=== PATIENT | female | born 1990 | race African-American/Black ===

== ENCOUNTER 2022-01-15 08:24 | Outpatient (CLI) | payer OTHER, SELFPAY ==
--- NOTE | ~2022-01-15 | XR_ITS ---
EXAMINATION: XR shoulder RT min 2V DATE: 01/15/2022 08:47 INDICATION: Right shoulder pain TECHNIQUE: AP internally and externally rotated, AP oblique externally rotated and transscapular Y vi ews of the right shoulder were obtained. COMPARISON: None FINDINGS: Normal alignment at the right shoulder. No fracture. Glenohumeral joint is normal. Acromioclavicular joint is normal. Soft tissues are unremarkable. Visualized portions of the lungs are clear. Normal d egree and azygos lobe and fissure at the medial right upper lung zone. IMPRESSION: Negative right shoulder radiographs. Reviewed, dictated and finalized at location A. LE VALVE TESTER
--- NOTE | ~2022-01-15 | XR_ITS ---
EXAMINATION:XR_CERV2-3V_CR DATE: 01/15/2022 08:47 INDICATION: Cervicalgia radiating to the right shoulder TECHNIQUE: AP, lateral, lateral swimmers and odontoid views of the cervical spine are provided. COMPARISON: None FINDINGS: Straightening of the normal cervical lordosis which could be positional or due to muscle spasm. No sp ondylolisthesis or facet subluxation. Odontoid is intact. Normal atlantoaxial interval. Vertebral ilir dy heights are normal. Disc spaces are normal. The facet and uncovertebral joints are unremarkable. P revertebral soft tissues are normal. IMPRESSION: 1. Straightening of the normal cervical lordosis which could be positional or due to muscle spasm. Ot herwise unremarkable cervical spine radiographs. Reviewed, dictated and finalized at location A. IT UNION EXAMINER IMPRESSION: 1. Straightening of the normal cervical lordosis which could be positional or d ue to muscle spasm. Otherwise unremarkable cervical spine radiographs.
== END 2022-01-15 08:25 | disposition home or self-care (01) ==
LOC: ANHIMG 08:30
PROVIDERS: PCP Internal Medicine; Visit Provider Internal Medicine
DX: M54.2 Cervicalgia (principal); M25.511 Pain in right shoulder
CPT/HCPCS: 72040; 73030

== ENCOUNTER 2022-01-18 18:28 | Emergency (ER) | payer OTHER, SELFPAY ==
--- NOTE | ~2022-01-18 | CT_ITS ---
EXAMINATION: CT abdomen pelvis w con DATE: 01/18/2022 21:15 INDICATION: Lower abdominal pain for 2 days TECHNIQUE: Computed tomography (CT) of the abdomen and pelvis was performed with 100 CC Omnipaque 350 intravenous contrast. Automated exposure control and iterative reconstruction technique were employe d. Exam dose: 348.62 mGy-cm total exam DLP. COMPARISON: 12/14/2019 CT abdomen pelvis FINDINGS: The lung bases are clear. Normal heart size. No pericardial or pleural effusion. The liver, spleen, pancreas, and adrenal glands and kidneys are unremarkable. The gallbladder is pres ent. No bile duct or pancreatic duct dilatation. No urinary tract calculus or hydroureteronephrosis. Normal caliber of the abdominal aorta. No intraperitoneal or retroperitoneal or pelvic mass lesion or adenopathy is noted. Status post gastric bypass surgery. Diverticulosis of the left colon; no CT evidence of diverticulitis. No bowel obstruction is evident. There is free fluid in Morison's pouch, the right and left paracolic gutters and pelvis. There is enh ancement in the uterine serosal area and adnexa. Differential diagnosis includes ruptured cyst, ruptu red ectopic , pelvic inflammatory disease. Pessary device is noted. Included skeletal structures are unremarkable. IMPRESSION: Moderate free fluid in Morison's pouch, paracolic gutters and pelvis. There is a serosal enhancement of the uterus. Consider ruptured ovarian cyst, ruptured ectopic gestation, pelvic inflam matory disease Status post gastric bypass surgery Diverticulosis of left colon; no evidence of diverticulitis Reviewed, dictated and finalized at Location A. Reviewed, dictated and finalized at location A. ANALYST IMPRESSION: Moderate free fluid in Morison's pouch, paracolic gutters and pelv is. There is a serosal enhancement of the uterus. Consider ruptured ovarian cys t, ruptured ectopic gestation, pelvic inflammatory disease Status post gastric bypass surgery Diverticulosis of left colon; no evidence of diverticulitis
[2022-01-18 18:31] VITALS: BP 136/95; PULSE 152; RESP 20; TEMP 36.8; O2SAT 100
[2022-01-18 18:51] LABS: Basophils Percent Auto 0.3 % (0.2-1.2); Eosinophils Absolute Auto 0.3 K/mm3 (0-0.3); Eosinophils Percent Auto 2.7 % (0-4.4); Hematocrit 41.1 % (37.0-47.0); Hemoglobin 13.5 g/dL (12.0-15.0); Immature Granulocyte Absolute 0.03 K/mm3 (0.00-0.031); Immature Granulocyte Percent A 0.3 % (0-0.5); Lymphocytes Absolute Auto 2.15 K/mm3 (0.9-3.2); Lymphocytes Percent Auto 18.5 % (18.3-44.2); Mean Corpuscular HGB Conc 32.8 g/dl (32-36); Mean Corpuscular Hemoglobin 33.3 pg (26-34); Mean Corpuscular Volume 101.5 fl (80-100); Mean Platelet Volume 9.9 fl (7.4-10.4); Monocytes Absolute Auto 0.7 K/mm3 (0.1-0.6); Monocytes Percent Auto 6.1 % (2.6-8.5); Neutrophils Absolute Auto 8.4 K/mm3 (1.3-6.7); Neutrophils Percent Auto 72.1 % (45.5-73.1); Platelet Count Result 427 k/mm3 (150-375); Red Blood Count 4.05 M/mm3 (4.2-5.4); Red Cell Distribution Width 13.3 % (11.5-14.5); White Blood Count 11.6 K/mm3 (4.5-10.0)
[2022-01-18 19:05] LABS: Alanine Aminotransferase 14 U/L (4-35); Albumin Level 4.3 g/dL (3.5-5.1); Alkaline Phosphatase 90 U/L (38-126); Anion Gap 10 mmol/L (8-16); Aspartate Amino Transferase 32 U/L (14-36); Bilirubin,Total 0.6 mg/dL (0.2-1.3); Blood Urea Nitrogen 16 mg/dL (7-17); Calcium 8.8 mg/dL (8.4-10.2); Carbon Dioxide 23 mmol/L (22-30); Chloride 105 mmol/L (98-107); Estimated CRCL calculation 93 ml/min; Estimated Glomerular Filt Rate > 60; Glucose 93 mg/dL (65-110); Lipase 19 U/L (23-300); Potassium 3.4 mmol/L (3.4-5.0); Sodium 138 mmol/L (137-145)
[2022-01-18 20:20] LABS: Add Urine Microscopic? YES; Appearance Urine Cloudy (Clear); Bacteria Urine 2+ /hpf; Bilirubin Urine Negative (Negative); Blood Urine Negative (Negative); Color Urine Amber (Yellow); Glucose Urine UA Negative (Negative); Ketones Urine Trace mg/dL (Negative); Leukocyte Esterase Ur Trace LEU/UL (Negative); Mucus Urine Heavy /lpf; Nitrate Urine Negative (Negative); Protein Urine 1+ mg/dL (Negative); Squamous Epithelial Cell Urine Many /hpf (Few); Transitional Epi Cells Urine Rare /hpf (None Seen); Urobilinogen Urine Negative mg/dL (<2.0); WBC Urine 16-20 /hpf
--- NOTE | 2022-01-18 21:00 | ECG_ITS ---
Measurements Intervals [place] Rate: 108 P: 44 ME: 153 QRS: 59 QRSD: 81 T: -26 QT: 319 QTc: 429 Interpretive Statements SINUS TACHYCARDIA BORDERLINE ST-T WAVE ABNORMALITY- INFERIOR LEADS BASELINE ARTIFACT- I, III ABNORMAL ECG Electronically Signed On 01-18-2022 22:39:53 CONCRETE PUMP OPERATOR HELPER by Donato Winters D.O.
[2022-01-18] MEDS: ONDANSETRON INJ 4 MG/2 ML VIAL IV PUSH (21:18)
[2022-01-18] MEDS: LACTATED RINGERS 1,000 ML 999 ML IV CONT (21:18)
[2022-01-18] MEDS: MORPHINE SULFATE (*CRX) 4 MG/ML INJ IV PUSH (21:18)
--- NOTE | 2022-01-18 22:36 | ED.ABDPAIN ---
HPI - Abdominal Pain General Chief Complaint: Abdominal Pain Stated Complaint: abd pain Time Seen by Provider: 01/18/22 20:23 Source: patient and RN notes reviewed Mode of arrival: ambulatory Limitations: no limitations History of Present Illness HPI narrative: This is a 31 year old female who presents for evaluation of lower abdominal pain. She developed lower abdominal pain 2 days ago. Her pain has been constant but gradually worsening. She also reports her pain is worse on left lower abdomen. She has associated bloating but denies nausea, vomiting, diarrhea, fever or chills. She denies abnormal vaginal discharge or urinary complaints. She also denies having similar pain in the past. She has not taken anything for pain. Pain is rated 10/10. 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 Related Data Allergies Allergy/AdvReac Type Severity Reaction Status Date / Time No Known Allergies Allergy Verified 12/14/19 01:50 Review of Systems Review of Systems: All systems reviewed & are unremarkable except as noted in HPI and below Constitutional: Constitutional: Denies chills and Denies fever(s) Cardiovascular: Cardiovascular: Denies chest pain Respiratory: Respiratory: Denies cough and Denies dyspnea Gastrointestinal: Gastrointestinal: Reports abdominal pain, Reports bloating, Denies constipation, Denies diarrhea, Denies nausea and Denies vomiting Genitourinary: Genitourinary: Denies abnormal vaginal bleeding, Denies hematuria and Denies vaginal discharge [facility] Past Medical History Medical History (Updated 01/18/22 @ 23:53 by Barb Hernandez MD) CPAP (continuous positive airway pressure) dependence Sleep apnea Surgical History Surgical History (Updated 01/18/22 @ 22:41 by Barb Hernandez MD) H/O gastric bypass History of hand surgery left Social History Social History (Updated 12/14/19 @ 02:13 by Loraine Luque) Smoking status: Never smoker Gender identity (if verbalized by the patient): Female Exam Const: General: no acute distress and alert Orientation/consciousness: patient oriented x3 Eyes: EOM: EOMs intact bilaterally Resp: Effort & Inspection: normal respiratory effort Auscultation: clear to auscultation bilaterally Cardio: Rate: tachycardic Rhythm: regular rhythm Heart sounds: no murmurs GI: GI Palp: Yes Soft to palpation, Yes Tenderness to palpation present (GI) (LLQ, RLQ, suprapubic), No Guarding due to palpation present (GI) and No Rigid due to palpation Auscultation: normal bowel sounds : General: Yes no CVA tenderness Speculum Exam - Cervix: normal appearance of the cervix and Cervical os closed Bimanual exam- vagina & uterus: cervical motion tenderness Other: white discharge Skin: General skin exam: normal color Neuro: General: patient oriented x3, moves all extremities and CN's II-XI intact bilaterally Psych: Mental Status: mental status grossly normal Affect: normal affect Course Reevaluation(s) Reevaluation #1: PAtient does not appear to be in any distress. Ambulate with steady gait. she will be treated for PID vs ruptured cyst. She has gynecology follow in less than 3 days. She has been started in antibiotics in ER. Date: 01/18/22 Time: 23:51 Vital Signs Vital signs: Vital Signs Temperature 98.3 F 01/18/22 18:31 Pulse Rate 152 H 01/18/22 18:31 Respiratory Rate 20 01/18/22 18:31 Blood Pressure 136/95 H 01/18/22 18:31 Pulse Oximetry 100 01/18/22 18:31 Temperature 98.4 F 01/18/22 23:38 Pulse Rate 108 H 01/18/22 23:38 Respiratory Rate 16 01/18/22 23:38 Blood Pressure 132/85 01/18/22 23:38 Pulse Oximetry 99 01/18/22 23:38 MDM - Abdominal Pain Lab Data Attestation: I reviewed the patient's lab results. Result diagrams: 01/18/22 18:42 01/18/22 18:42 Labs: Lab Results 01/18/22 01/18/22 01/18/22 Range/Units 18:42 18:42 20:09 WBC 11.6 H (4.5-10.0) K/m
[2022-01-18 22:58] LABS: Lactic Acid Reflex 1.4 mmol/L (0.7-2.1)
[2022-01-18] MEDS: DOXYCYCLINE HYCLATE 100 MG TABLET PO (23:24)
[2022-01-18] MEDS: cefTRIAXone 1 GM VIAL 0.5 GM IM (23:24)
[2022-01-18] MEDS: KETOROLAC 30 MG/ML VIAL (*BKC) IV PUSH (23:35)
[2022-01-18] MEDS: HYDROcodone/acetaminophen (*CRX) 5-325 MG TABLET 1 TAB PO (23:35)
[2022-01-18 23:38] VITALS: BP 132/85; PULSE 108; RESP 16; TEMP 36.9; O2SAT 99
== END 2022-01-19 00:10 | disposition home or self-care (01) ==
PROVIDERS: Emergency Medicine; Emergency Provider General Practice; PCP Internal Medicine
DX: N73.0 Acute parametritis and pelvic cellulitis (principal); G47.30 Sleep apnea, unspecified; Z98.84 Bariatric surgery status; K57.90 Diverticulosis of intestine, part unspecified, without perforation or abscess without bleeding; R00.0 Tachycardia, unspecified; R94.31 Abnormal electrocardiogram [ECG] [EKG]; Z11.3 Encounter for screening for infections with a predominantly sexual mode of transmission; N89.8 Other specified noninflammatory disorders of vagina
CPT/HCPCS: 36415; 74177; 80053; 81001; 81025; 83605; 83690; 85025; 87070; 87086; 87491; 87591; 87808; 93005; 96361; 96372; 96374; 96375; 99284; A9270; J0696; J1885; J2270; J2405; J7120; Q9967

== ENCOUNTER 2024-04-21 18:15 | Emergency (ER) | payer OTHER, SELFPAY ==
[2024-04-21 18:18] VITALS: BP 150/99; PULSE 83; RESP 16; TEMP 36.2; O2SAT 100
[2024-04-21 18:41] LABS: Basophils Percent Auto 0.4 % (0.2-1.2); Eosinophils Absolute Auto 0.1 K/mm3 (0-0.3); Eosinophils Percent Auto 1.2 % (0-4.4); Hematocrit 41.3 % (37.0-47.0); Hemoglobin 13.3 g/dL (12.0-15.0); Immature Granulocyte Absolute 0.01 K/mm3 (0.00-0.031); Immature Granulocyte Percent A 0.1 % (0-0.5); Lymphocytes Absolute Auto 2.26 K/mm3 (0.9-3.2); Lymphocytes Percent Auto 33.4 % (18.3-44.2); Mean Corpuscular HGB Conc 32.2 g/dl (32-36); Mean Corpuscular Hemoglobin 31.7 pg (26-34); Mean Corpuscular Volume 98.6 fl (80-100); Mean Platelet Volume 10.6 fl (7.4-10.4); Monocytes Absolute Auto 0.3 K/mm3 (0.1-0.6); Monocytes Percent Auto 4.7 % (2.6-8.5); Neutrophils Absolute Auto 4.1 K/mm3 (1.3-6.7); Neutrophils Percent Auto 60.2 % (45.5-73.1); Platelet Count Result 366 k/mm3 (150-375); Red Blood Count 4.19 M/mm3 (4.2-5.4); Red Cell Distribution Width 12.8 % (11.5-14.5); White Blood Count 6.8 K/mm3 (4.5-10.0)
--- NOTE | 2024-04-21 18:46 | ED.ABDPAIN ---
HPI - Abdominal Pain General Chief Complaint: Abdominal Pain Stated Complaint: abd pain Time Seen by Provider: 04/21/24 18:24 Source: patient Mode of arrival: ambulatory Limitations: no limitations History of Present Illness HPI narrative: Masha is a 33-year-old female patient presenting to the clinic today with complaints of lower abdominal pain, left lower back pain, and urinary frequency with urgency. She reports she has been on Macrobid for UTI. States she does not feel as though it is working. Denies any fever, chills, body aches. Related Data Allergies Allergy/AdvReac Type Severity Reaction Status Date / Time No Known Allergies Allergy Verified 04/21/24 19:32 Review of Systems Review of Systems: Pertinent positives per HPI. Patient denies any fever, chills, rash, headache, visual changes, dizziness, cough, runny nose, sore throat, shortness of breath, chest pain, palpitations, nausea, vomiting, diarrhea, constipation PMFSH Past Medical History Medical History CPAP (continuous positive airway pressure) dependence Sleep apnea Surgical History Surgical History H/O gastric bypass History of hand surgery left Social History Social History Smoking status: Never smoker Gender identity (if verbalized by the patient): Female Comments At the time of my signature, I reviewed and agree with the nursing past medical, surgical, social, and family history. There is no relevant family history pertinent to the patient complaint. Exam Narrative: General: Well-developed, well nourished, in no apparent distress. Head: Normocephalic, atraumatic. Cardio: Regular rate and rhythm, s1 and s2 normal, no murmur appreciated. Resp: Clear to auscultation bilaterally, no rhonchi, rales, wheezing or rubs. Abdomen: Soft, pliable, bowel sounds present in all quadrants, non-tender to palpation, no organomegly, no CVAT tenderness. Course Course Emergency Course: Portions of this record may have been created with voice recognition software. Vital Signs Vital signs: Vital Signs Temperature 36.2 C L 04/21/24 18:18 Pulse Rate 83 06/01/24 18:18 Respiratory Rate 16 04/21/24 18:18 Blood Pressure 150/99 H 04/21/24 18:18 Pulse Oximetry 100 04/21/24 18:18 Temperature 36.2 C L 04/21/24 18:18 Pulse Rate 83 04/21/24 18:18 Respiratory Rate 16 04/21/24 18:18 Blood Pressure 150/99 H 04/21/24 18:18 Pulse Oximetry 100 04/21/24 18:18 Vital signs reviewed MDM - Abdominal Pain MDM Narrative Medical decision making narrative: At the time of visit patient is resting comfortably on the exam table. Patient appears to be nontoxic. Labs: CBC shows white blood cell count of 6.8, H&H of 13.3 and 41.3, platelet count 366, chemistry shows sodium 141, potassium of 3.5, chloride 110, BUN 18, creatinine 0.6, GFR is greater than 60, liver function test within normal limits, lipase is normal. Urinalysis shows 2+ blood trace leukocytes and 3-5 red blood cells 0-5 white blood cells with rare bacteria. Plan: I suspect patient still has a urinary tract infection. Prescription for Bactrim. Supportive measures were discussed with the patient and they voiced understanding discharge instructions and agrees to treatment plan. Return precautions reviewed Differential Diagnosis Differential diagnosis: Likely abdominal pain, calculus of kidney, gastroenteritis and other (UTI) Lab Data 04/21/24 18:35 04/21/24 18:35 Labs: Lab Results 04/21/24 04/21/24 Range/Units 18:35 18:39 WBC Pending RBC Pending Hgb Pending Hct Pending MCV Pending MCH Pending MCHC Pending RDW Pending Plt Count Pending MPV Pending Immature Gran % (Auto) Pending Neut % (Auto) Pendi
[2024-04-21 18:52] LABS: Appearance Urine Clear (Clear); Bacteria Urine Rare /hpf; Bilirubin Urine Negative (Negative); Blood Urine 2+ (Negative); Color Urine Yellow (Yellow); Glucose Urine UA Negative (Negative); Ketones Urine Negative (Negative); Leukocyte Esterase Ur Trace LEU/UL (Negative); Nitrate Urine Negative (Negative); Non Pathogenic Casts 0-2; Protein Urine Trace mg/dL (Negative); Specific Grav Ur 1.025 (1.001-1.035); Squamous Epithelial Cell Urine Moderate /hpf (Few); WBC Urine 0-5 /hpf (0-3); pH Urine 6.5 (5.0-9.0)
[2024-04-21 18:55] LABS: Add Urine Microscopic? YES
[2024-04-21 19:07] LABS: Alanine Aminotransferase 16 U/L (6-35); Albumin Level 4.2 g/dL (3.5-5.1); Alkaline Phosphatase 76 U/L (38-126); Anion Gap 6 mmol/L (4-12); Aspartate Amino Transferase 27 U/L (14-36); Bilirubin,Total 0.4 mg/dL (0.2-1.3); Blood Urea Nitrogen 18 mg/dL (7-17); Carbon Dioxide 25 mmol/L (22-30); Chloride 110 mmol/L (98-107); Estimated CRCL calculation 104 ml/min; Estimated Glomerular Filt Rate > 60; Glucose 85 mg/dL (65-110); Lipase 42 U/L (23-300); Potassium 3.5 mmol/L (3.4-5.0); Sodium 141 mmol/L (137-145)
[2024-04-21 20:05] VITALS: BP 131/83; PULSE 71; RESP 18; TEMP 36.9; O2SAT 100
== END 2024-04-21 20:06 | disposition home or self-care (01) ==
PROVIDERS: Emergency Medicine; Emergency Provider Nurse Practitioner Family; PCP Internal Medicine
DX: N30.01 Acute cystitis with hematuria (principal); G47.30 Sleep apnea, unspecified
CPT/HCPCS: 36415; 80053; 81001; 81025; 83690; 85025; 99283

== ENCOUNTER 2024-06-11 16:28 | Emergency (ER) | payer OTHER, SELFPAY ==
--- NOTE | ~2024-06-11 | CT_ITS ---
EXAMINATION: CT abdomen pelvis w con DATE: 06/11/2024 19:11 INDICATION: left sided abd pain TECHNIQUE: Computed tomography (CT) of the abdomen and pelvis was performed with 100 mL Omnipaque-350 intravenous contrast. Automated exposure control and iterative reconstruction technique were employe d. The dose-length product was 420.51 mGy-cm. COMPARISON: None. FINDINGS: Lower thorax: Minimal dependent atelectasis Liver: Normal. Biliary/Gallbladder: Gallbladder is normal. No bile duct dilation. Pancreas: No mass or duct dilation. Spleen: Normal. Adrenals:No mass. Kidneys: No suspicious mass, obstructing stone, or hydronephrosis. GI tract: Prior gastric surgery. Mild distal esophageal and gastric wall edema. No small or large bow el dilation. Normal appendix. Diverticulosis without diverticulitis. Mesentery/Peritoneum: No ascites, mass, or free air. Retroperitoneum: No mass. Pelvis: Pelvic organs are within normal limits. Vaginal control device. Soft Tissues: Soft tissues and body wall unremarkable. Bones: No acute osseous finding. IMPRESSION: Mild esophagitis/gastritis. Otherwise, no acute abdominopelvic process detected Reviewed, dictated and finalized at location K.
[2024-06-11 16:31] VITALS: BP 129/91; PULSE 102; RESP 20; TEMP 36.2; O2SAT 100
[2024-06-11 17:38] LABS: Basophils Absolute Auto 0.1 K/mm3 (0.0-0.1); Basophils Percent Auto 0.5 % (0.2-1.2); Eosinophils Absolute Auto 0.1 K/mm3 (0-0.3); Eosinophils Percent Auto 0.9 % (0-4.4); Hematocrit 43.3 % (37.0-47.0); Hemoglobin 14.1 g/dL (12.0-15.0); Immature Granulocyte Absolute 0.04 K/mm3 (0.00-0.031); Immature Granulocyte Percent A 0.4 % (0-0.5); Lymphocytes Absolute Auto 2.31 K/mm3 (0.9-3.2); Lymphocytes Percent Auto 24.1 % (18.3-44.2); Mean Corpuscular HGB Conc 32.6 g/dl (32-36); Mean Corpuscular Hemoglobin 32.3 pg (26-34); Mean Corpuscular Volume 99.1 fl (80-100); Mean Platelet Volume 10.6 fl (7.4-10.4); Monocytes Absolute Auto 0.5 K/mm3 (0.1-0.6); Monocytes Percent Auto 5.6 % (2.6-8.5); Neutrophils Absolute Auto 6.6 K/mm3 (1.3-6.7); Neutrophils Percent Auto 68.5 % (45.5-73.1); Platelet Count Result 334 k/mm3 (150-375); Red Blood Count 4.37 M/mm3 (4.2-5.4); Red Cell Distribution Width 13.3 % (11.5-14.5); White Blood Count 9.6 K/mm3 (4.5-10.0)
[2024-06-11 17:42] LABS: Appearance Urine Cloudy (Clear); Bacteria Urine None Seen /hpf; Bilirubin Urine Negative (Negative); Blood Urine Trace (Negative); Color Urine Yellow (Yellow); Glucose Urine UA Negative (Negative); Ketones Urine Negative (Negative); Leukocyte Esterase Ur Trace LEU/UL (Negative); Nitrate Urine Negative (Negative); Non Pathogenic Casts 0-2; Protein Urine Trace mg/dL (Negative); Specific Grav Ur 1.024 (1.001-1.035); Squamous Epithelial Cell Urine Occasional /hpf (Few); WBC Urine 0-5 /hpf (0-3)
[2024-06-11 17:44] LABS: Add Urine Microscopic? YES
[2024-06-11 17:48] LABS: Alanine Aminotransferase 16 U/L (6-35); Albumin Level 4.7 g/dL (3.5-5.1); Alkaline Phosphatase 73 U/L (38-126); Anion Gap 11 mmol/L (4-12); Aspartate Amino Transferase 31 U/L (14-36); Bilirubin,Total 0.6 mg/dL (0.2-1.3); Blood Urea Nitrogen 16 mg/dL (7-17); Calcium 9.2 mg/dL (8.4-10.2); Carbon Dioxide 24 mmol/L (22-30); Chloride 104 mmol/L (98-107); Estimated CRCL calculation 91 ml/min; Estimated Glomerular Filt Rate > 60; Glucose 80 mg/dL (65-110); Lipase 42 U/L (23-300); Potassium 3.9 mmol/L (3.4-5.0); Sodium 139 mmol/L (137-145)
--- NOTE | 2024-06-11 18:41 | ED.ABDPAIN ---
HPI - Abdominal Pain General Chief Complaint: Abdominal Pain Stated Complaint: LLQ pain Time Seen by Provider: 06/11/24 17:16 Source: patient Mode of arrival: ambulatory Limitations: no limitations History of Present Illness HPI narrative: This is a 33-year-old female that presents to the emergency department for left lower quadrant abdominal pain. Ongoing over the last couple of weeks. Reports fullness in her lower abdomen. Reports some loose stools. Denies fevers, vomiting, dysuria, or hematuria. Related Data Home Medications Medication Instructions Recorded Confirmed etonogestrel 0.12 mg-ethinyl vag ring vaginal 06/11/24 estradiol 0.015 mg/24 hr vaginal ring (EluRyng) Allergies Allergy/AdvReac Type Severity Reaction Status Date / Time No Known Allergies Allergy Verified 06/11/24 17:59 Review of Systems Review of Systems: CONSTITUTIONAL: Denies fever GASTROINTESTINAL: Report abdominal pain and diarrhea. Denies nausea, vomiting GENITOURINARY: Denies dysuria or hematuria. All systems reviewed & are unremarkable except as noted in HPI and below PMFSH Past Medical History Medical History CPAP (continuous positive airway pressure) dependence Sleep apnea Surgical History Surgical History H/O gastric bypass History of hand surgery left Social History Social History Smoking status: Never smoker Gender identity (if verbalized by the patient): Female Exam Narrative: GENERAL: Well-appearing, well-nourished, and in no acute distress. HEAD: Normocephalic, atraumatic. EYES: EOMI. CHEST: Clear to auscultation. No respiratory distress. No wheezes rales or rhonchi HEART: Regular rate and rhythm. No murmur heard. Normal peripheral pulses. ABDOMEN: Soft, nondistended, normal active bowel sounds. Mild tenderness to palpation in the left lower quadrant, without guarding EXTREMITIES: Normal range of motion. No edema. SKIN: Warm, dry, no rash. NEURO: No focal deficits. Alert and oriented x3. PSYCH: Normal mood and affect Course Course Emergency Course: Patient updated on her workup and agrees with plan of care Vital Signs Vital signs: Vital Signs Temperature 97.1 F L 06/11/24 16:31 Pulse Rate 102 H 06/11/24 16:31 Respiratory Rate 20 06/11/24 16:31 Blood Pressure 129/91 H 06/11/24 16:31 Pulse Oximetry 100 06/11/24 16:31 Temperature 97.1 F L 06/11/24 16:31 Pulse Rate 102 H 06/11/24 16:31 Respiratory Rate 20 06/11/24 16:31 Blood Pressure 129/91 H 06/11/24 16:31 Pulse Oximetry 100 06/11/24 16:31 MDM - Abdominal Pain MDM Narrative Medical decision making narrative: Patient presents to the ER for left sided lower abdominal pain. Ongoing over the last several weeks. Patient is afebrile and nontoxic appearing. CBC without leukocytosis. Metabolic panel and lipase without concerning findings. Urine without evidence of infection. CT abdomen pelvis shows mild esophagitis/gastritis. Otherwise no acute findings. Patient was updated on her workup and agrees with plan of care. She is to follow up with primary provider. She was given warnings to return to the ER Differential Diagnosis Differential diagnosis: Likely calculus of kidney, constipation, diverticulitis and other (UTI, ovarian cyst) Lab Data Attestation: I reviewed the patient's lab results. 06/11/24 17:28 06/11/24 17:28 Labs: Lab Results 06/11/24 06/11/24 Range/Units 17:28 17:32 WBC 9.6 (4.5-10.0) K/mm3 RBC 4.37 (4.2-5.4) M/mm3 Hgb 14.1 (12.0-15.0) g/dL Hct 43.3 (37.0-47.0) % MCV 99.1 (80-100) fl MCH 32.3 (26-34) pg MCHC 32.6 (32-36) g/dl RDW 13.3 (11.5-14.5) % Plt Count 334 (150-375) k/mm3 MPV 10.6 H (7.4-10.4) fl Immature Gran % (Auto) 0
[2024-06-11] MEDS: FAMOTIDINE 20 MG TABLET PO (19:48)
[2024-06-11] MEDS: ACETAMINOPHEN 500 MG TABLET 1000 MG PO (19:48)
[2024-06-11 19:50] VITALS: BP 131/78; PULSE 91; RESP 16; TEMP 36.3; O2SAT 100
== END 2024-06-11 19:54 | disposition home or self-care (01) ==
PROVIDERS: Emergency Provider Physician Assistant; PCP Internal Medicine
DX: K20.90 Esophagitis, unspecified without bleeding (principal); G47.30 Sleep apnea, unspecified; Z98.84 Bariatric surgery status
CPT/HCPCS: 36415; 74177; 80053; 81001; 81025; 83690; 85025; 99284; A9270; Q9967

== ENCOUNTER 2025-03-06 16:52 | Emergency (ER) | payer OTHER, SELFPAY ==
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
[2025-03-06 16:56] VITALS: BP 133/93; PULSE 128; RESP 18; TEMP 36.7; O2SAT 99
--- OUTSIDE RECORDS SUMMARY | 2025-03-06 16:57 | XMS_ITS | Clinical Summary ---
Author Organization [facility] Address [address] [place] [address] Care Team Providers Care Rubber Insulator Name Role Phone Isaac Rush MD Primary Care Provider [phone] Source Comments [facility],non-owned Affiliates and Associated Physician Practices is amultiple site organization consisting of ambulatory clinics and hospital sitesin [place], [place], [place] and [place]. This disclosure is being madepursuant to the Care Everywhere program and may not contain all information available regarding this patient. Last updated 18.[facility] Allergies No known active allergies Medications * Be aware that medications may not be up to date on this document. Alwaysverify current medications with the patient. etonogestrel-et hinyl estradiol (NUVARING) 0.12-0.015 MG/24HR vaginal ring Insert 1 device into the vagina as directed Remove ring after 3 weeks, followed by 1 week-rest, then insert new ring Active metoprolol tartrate (LOPRESSOR) 25 MG tablet Take 25 mg by mouth 2 times daily 1 Active acetaminophen (TYLENOL) 160 MG/5ML solution Take 31.25 mL by mouth every 8 hours 1 Active magnesium hydroxide (MILK OF MAGNESIA) 400 MG/5ML suspension Take 15 mL by mouth once daily 1 Active ondansetron, disintegrating, (ZOFRAN ODT) 4 MG tablet Take 1 (one) tablet by mouth every 6 hours as needed for Nausea/Vomiting Allow tablet to dissolve on the tongue 20 tablet 1 Active vitamin D, ergocalciferol, (DRISDOL) 1.25 MG (74634 UT) capsule Take 1 (one) capsule by mouth every 7 days 12 capsule 1 Active senna-docusate (SENOKOT-S) 8.6-50 MG tablet Take 1 (one) tablet by mouth 2 times daily as needed for Constipation 1 Active Additional Information Patient not taking.Reported on 01/13/2021 magnesium hydroxide (MILK OF MAGNESIA) 400 MG/5ML suspension Take 15 mL by mouth as needed for Constipation 1 Active oxyCODONE (ROXICODONE) 5 MG/5ML oral solution Take 5 mL by mouth every 6 hours as needed 120 mL 1 Active omeprazole (PRILOSEC) 20 MG capsule Take 1 (one) capsule by mouth once daily 30 capsule 5 1 Active Active Problems Problem Noted Date Diagnosed Date History of sleeve gastrectomy 01/06/2021 Morbid obesity 01/06/2021 Family History Medical History Relation Name Comments Hypertension Mother Relation Name Status Comments Mother Social History Tobacco Use Types Packs/Day Years Used Date Smoking Tobacco: Never Smokeless Tobacco: Never Alcohol Use Standard Drinks/Week Comments Yes 0 (1 standard drink = 0.6 oz pur e alcohol) occasionally Comments No Sex and Gender Information Value Date Recorded Sex Assigned at Female 07/01/2021 11:46 AM CDT Legal Sex Female 11:48 AM SEATING AND MOBILITY TECHNOLOGIST Gender Identity Female 07/01/2021 11:46 AM CDT Sexual Orientation Straight 07/01/2021 11 :46 AM CDT Last Filed Vital Signs Vital Sign Reading Time Taken Comments Blood Pressure 120/80 01/26/2022 1:32 PM SEATING AND MOBILITY TECHNOLOGIST Pulse 119 01/26/2022 1:32 PM SEATING AND MOBILITY TECHNOLOGIST Temperature 36.8 C (98.3 F) 01/26/2022 1:32 PM SEATING AND MOBILITY TECHNOLOGIST Respiratory Rate 16 11/15/2021 3:24 PM SEATING AND MOBILITY TECHNOLOGIST Oxygen Saturation 98% 11/15/2021 3:24 PM SEATING AND MOBILITY TECHNOLOGIST Inhaled Oxygen Concentration - - Weight 68.9 kg (152 lb) 01/26/2022 1:32 PM SEATING AND MOBILITY TECHNOLOGIST Height 157.5 cm (5' 2 ) 01/26/2022 1:32 PM SEATING AND MOBILITY TECHNOLOGIST Body Mass Index 27.8 01/26/2022 1:32 PM SEATING AND MOBILITY TECHNOLOGIST Plan of Treatment Health Maintenance Due Date Last Done Comments PAP SMEAR 1991 HIV SCREENING 2006 HEPATITIS C SCREENING 10/12/2009 DTAP/TDAP/TD VACCINES (1 - Tdap) 2010 HEPATITIS B VACCINE (1 of 3 - 19+ 3-dose series) 2010 COVID-19 VACCINE (1 - 2023-2 5 season) 2024 DEPRESSION SCREENING 11/21/2024 INFLUENZA VACCINE (Season Ended) 2025 08/18/20 20 ZOSTER VACCINE (1 of 2) 2041 HIB VACCINE Aged Out No longer eligi ble based on patient's age to complete this topic HPV VACCINE Aged Out No longer eligi ble based on patient's age to complete this topic MENINGOCOCCAL (Group B) VACC INE SHARED DECISION-MAKING Aged Out No longer eligibl e based on patient's age to complete this topic MENINGOCOCCAL GROUPS A/C/Y/W VACCINE Aged Out No longer eligible b ased on patient's age to complete this topic PNEUMOCOCCAL VACCINE Aged Out No long er eligible based on patient's age to complete this topic Insurance [facility] [employer] Advance Directives * Full Code (Latest Code Status on File) Date Activated Date Inactivated Comments 01/06/2021 12:20 PM 01/07/2021 8:32 PM Care Teams Rubber Insulator Relationship Specialty Start Date End Date Isaac Rush MD [address] [place] [address] PCP - General Internal Medicine 01/29/18
--- OUTSIDE RECORDS SUMMARY | 2025-03-06 16:57 | XMS_ITS | Data Portability ---
Author Organization [facility], [employer] Address [address] [address] Assessment Encounter Date Assessment Date Assessment LastModified by Organization Details LastModified Time 07/17/2019 07/17/2019 Patient presente d for follow up. Studies ordered as below. Discussed plan with patient/caregiver , who expressed understanding. Follow up as noted below. [email or web address] Not available 07/17/2019 16:36:58 08/18/2020 08/18/2020 Patient presente d to office today for their Medicare Annual Wellness Visit. Education was provided on healthy nutrition, including a diet rich in fruits and vegetables, minimizing simple carbohydrates, salt, and saturated fats. Encouraged regular cardiovascular exercise such as walking at least 30 minutes daily, 5 times per week. Emphasized preventive health measures and educated pt on fall prevention and community-based lifestyle interventions to help reduce health risks and promote healthy living. [email or web address] Not available 08/18/2020 19:02:44 07/05/2022 07/05/2022 Patient presente d for follow up. Studies ordered as below. Discussed plan with patient/caregiver , who expressed understanding. Follow up as noted below. Not available 07/05/2022 15:50:29 Plan of Treatment Reminders Order Date Submit Date Provider Last Modified By Organization Details Last Modified Time Details Appointments None recorded. Lab TSH + free T4, serum 2021 022 [facility] (Lab), [address], [place], [address], 13:45:10 CBC w/ auto diff 2021 022 [facility] (Lab), [address] [place] [address] [place] [address], [id number], 5 13:45:10 CMP, serum or plasma 2021 [facility] (Lab), [address] [place] [address], [address], 5 13:45:10 magnesium , serum or plasma 2021 [facility] (Lab), [address] [place] [address], [address], 5 13:45:10 hepatitis C Ab, serum 2021 [facility] (Lab), [address] [place] [address], [address], 5 13:45:10 vitamin D, 25-hydrox y, total, serum 2021 [facility] (Lab), [address] [place] [address], [address], 5 13:45:10 vitamin B12, serum 2021 [facility] (Lab), [address] [place] [address], [address], 5 13:45:10 TSH + free T4, serum 2021 [facility] (Lab), [address] [place] [address], [address], 2 08:25:02 lipid panel w/ direct LDL, serum 2021 [facility] (Lab), [address] [place] [address], [address], 2 08:25:03 hepatitis C Ab, serum 2021 022 [facility] (Lab), [address] [place] [address], [address], 2 08:25:03 vitamin D, 25-hydrox y, total, serum [address] (Lab), [address] [place] [address], [address], 2 17:32:05 vitamin B12, serum [address] (Lab), [address] [place] [address], [address], 2 17:32:05 magnesium , serum or plasma 2021 022 [facility] (Lab), [address] [place] [address], [address], 2 08:25:03 CBC w/ auto diff 2021 022 [facility] (Lab), [address] [place] [address], [address], 2 08:25:03 CMP, serum or plasma 2021 022 [facility] (Lab), [address] [place] [address], [address], 2 08:25:03 TSH + free T4, serum [address] (Lab), [address] [place] [address], [address], 0 09:19:38 magnesium , serum or plasma [address] (Lab), [address] [place] [address], [address], 0 09:19:38 lipid panel, serum [address] (Lab), [address] [place] [address], [address], 0 09:19:39 CMP, serum or plasma [address] (Lab), [address] [place] [address], [address], 0 09:19:39 CBC w/ auto diff [address] (Lab), [address] [place] [address], [address], 0 09:19:39 hepatitis C Ab, serum [address] (Lab), [address] [place] [address], [address], 0 09:19:38 TSH, serum or plasma [address] (Lab), [address] [place] [address], [address], 0 09:19:38 HbA1c (hemoglob in A1c), blood [address] (Lab), [address] [place] [address], [address], 0 09:19:38 hepatitis C Ab, serum [address] (Lab), [address] [place] [address], [address], 9 09:04:05 Referral gynecolog ist referral 2021 022 [place], [address] [address], [facility] [address], [address], 2 14:31:[address] referral 2021 022 emeterio Nixon, [address] , [place], [address], 2 14:30:[address] referral 2019 020 [email or web address] Paulette Nixon, [address] , [place], [address], 0 10:20:30 gynecolog ist referral 2019 020 [email or web address] Hansel Hodgson, [address] [facility], [address], [place], [address], 0 10:20:30 bariatric medicine referral 2019 020 [email or web address] [place], [address], [address], [place], [address], 0 09:19:48 pulmonolo gist referral 2018 019 [email or web address] Ramya Cavazos MD, [address] [facility], [address], [place], [address], 9 08:59:21 Procedures cerumen removal (PROC) 2021 [facility], [address], [place], [address], 2 10:51:28 Surgeries None recorded. Imaging US, thyroid 2021 [facility] (Imaging), [address], [place], [address], 5 13:44:42 electroca rdiogram 2021 [facility], [address], [place], [address], 2 09:01:35 US, thyroid 2021 022 [facility] (Imaging), [address], [place], [address], 2 18:28:58 US, thyroid [address] (Imaging), [address], [place], [address], 0 09:36:24 XR, chest, 2 view [address] (Imaging), [address] [facility] [address], [address], 9 09:16:52 Medication Orders metoprolo l succinate ER 25 mg tablet,ex tended release 24 hr [address] [id number], [address], [place], [place], [id number], 2 16:40:58 carvedilo l 3.125 mg tablet 2019 020 [facility] #[id number], [address], [place], [place], [id number], 2 11:27:34 Saxenda 3 mg/0.5 mL (18 mg/3 mL) subcutane ous pen injector 2018 019 [facility] #17158, [address], [place], [place], [id number], 0 19:25:06 carvedilo l 3.125 mg tablet 2018 019 [facility] #[id number], [address] [facility], [place], [place], [phone], 11:27:34 Patient TargetsNo targets recorded. Patient Instructions Encounter Date Encounter Id Patient Instructions Last Modified By Organization Details Last Modified Time 07/17/2019 [id number] infection from tattoos: care instructions mshenouda Not available 07/17/2019 17:10:16 body mass index: care instructions mshenouda Not available 07/17/2019 17:02:11 learning about healthy weight mshenouda Not available 07/17/2019 17:02:11 pneumonia: care instructions mshenouda Not available 07/17/2019 17:10:16 sleep apnea: car e instructions mshenouda Not available 07/17/2019 17:02:11 08/18/2020 [id number] thyroid nodules: care instructions mshenouda Not available 08/18/2020 19:34:53 advance care planning: care instructions mshenouda Not available 08/18/2020 19:34:53 infection from tattoos: care instructions mshenouda Not available 08/18/2020 19:34:54 body mass index: care instructions mshenouda Not available 08/18/2020 19:34:53 learning about healthy weight mshenouda Not available 08/18/2020 19:34:54 sleep apnea: car e instructions mshenouda Not available 08/18/2020 19:34:54 Discussed and explained advance directives such as standard forms to the {{patient* caregi davina patient and caregiver}}. Face to face discussion lasted for a duration of _3_ minutes. mshenouda Not available 08/18/2020 19:27:51 01/15/2021 [id number] infection from tattoos: care instructions mshenouda Not available 01/15/2021 14:56:28 thyroid nodules: care instructions mshenouda Not available 01/15/2021 14:56:28 sleep apnea: car e instructions mshenouda Not available 01/15/2021 14:56:28 01/15/[id number] neck pain: care instructions mshenouda Not available 01/15/2022 11:39:37 thyroid nodules: care instructions mshenouda Not available 01/15/2022 11:39:37 infection from tattoos: care instructions mshenouda Not available 01/15/2022 11:39:36 sleep apnea: car e instructions [facility] Not available 01/15/2022 11:39:36 learning about healthy weight [facility] Not [facility] 01/15/2022 11:39:36 07/05/2022 [id number] thyroid nodules: care instructions [facility] Not available 07/05/2022 16:40:51 infection from tattoos: care instructions [facility] Not available 07/05/2022 16:40:51 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 Referral for O bstructive sleep apnea syndrome Referring Physician: Isaac Rush, Internal Medicine, Encounter Date: 07/17/2019 Bariatric Medicine Referral for Body mass index 40+ - severely obese Referring Physician: Isaac Rush Internal Medicine, Encounter Date: 08/18/2020 [employer]per Referral for Mark lt health examination Referring Physician: Isaac Rush Internal Medicine, Encounter Date: 08/18/2020 Medical Scheduler Referral for Sc reening for malignant neoplasm of cervix Referring Physician: Isaac Rush Internal Medicine, Encounter Date: 08/18/2020 [employer] Helper Referral for Scr eening procedure Referring Physician: Isaac Rush Internal Medicine, Encounter Date: 01/15/2022 Medical Scheduler Referral for Sc reening for malignant neoplasm of cervix Referring Physician: Isaac Rush Internal Medicine, Encounter Date: 01/15/2022 Results Created Date Observation Date Name Description Value Unit Range Abnormal Flag Note LastModifiedBy Organization Detail LastModifiedTime 10/16/20 19 10/16/2019 billy moscoso am No observ ation record ed. [facility] Not Available 2019 19:28:01 10/23/20 19 10/05/2019 sleep study , ASV titra tion* No observ ation record ed. [facility] [address], [place], [address], 08/18/2020 19:28:01 08/20/20 20 03/07/2019 billy moscoso am No observ ation record ed. [facility] [address], [place], [address], 01/15/2021 14:49:04 01/15/20 22 01/15/2022 XR, camilla cisneros, 2 or more view No observ ation record ed. [address], [place], [address], 01/15/2022 11:21:54 01/20/20 22 01/18/2022 CT, abdom en + pelvi s, w/ contr ast No observ ation record ed. [id number] [facility] [address], [place], [address], 07/05/2022 16:39:54 07/05/20 22 07/06/2022 elect rocar diogr am No observ ation record ed. [facility], [facility] [address], [place], [address], 07/06/2022 16:52:04 07/06/20 22 07/05/2022 elect rocar diogr am No observ ation record ed. [facility], [facility] [address], [place], [address], 07/08/2022 16:54:15 07/06/20 22 07/05/2022 elect rocar diogr am No observ ation record ed. [facility], [facility] [address], [place], [address], 07/08/2022 16:54:37 07/06/20 22 07/05/2022 elect rocar diogr am No observ ation record ed. [facility], [facility] [address], [place], [address], 07/08/2022 16:54:24 06/12/20 24 06/11/2024 CT, abdom en + pelvi s, w/ contr ast No observ ation record ed. [email or web address], [place], [address], 06/15/2024 09:31:25 Result Notes None recorded. Problems Name Problem SNOMED Code Status Onset Date Resolution Date Notes Provider Name and Address Organization Details Recorded Time Gastriti s 2374134 Active 2023 Isaac Rush MD [address], [place], [address], [facility] 4 21:13:40 Hyperpro teinemia 46283127 Active 2023 Isaac Rush MD [address], [place], [address], [facility] 4 11:43:30 Overweig ht 876838325 Completed 201608/18/2020 Isaac Rush MD [address], [place], [address], [facility] 0 19:23:23 Tattoo of skin 07047252761 2 Active 2016 Isaac Rush MD [address], [place], [address], [facility] 7 16:52:50 Obstruct ean sleep apnea syndrome 20053133 Active 2018 Mild Isaac Rush MD [address], [place], [address], [facility] 9 17:53:18 Body mass index 40+ - severely obese 187186046 Completed 201801/15/2022 Removal Reason: resolved Isaac Rush MD [address], [place], [address], [facility] 2 11:30:08 Sinus tachycar aiden 28176650 Active 2018 Isaac Rush MD [address], [place], [address], [facility] 9 17:09:33 Thyroid nodule 242677266 Active 2019 Isaac Rush MD [address], [place], [address], [facility] 0 19:34:29 History of bariatri c surgical procedur e 866287916 Active 2020 Isaac Rush MD [address], [place], [address], [facility] 1 14:52:30 Vitamin D deficien cy 08363835 Active 2021 Isaac Rush MD [address], [place], [address], [facility] 2 11:32:00 History of SARS-CoV -2 85487926439 5568367 Active 2021 Isaac Rush MD [address], [place], [address], [facility] 2 16:23:42 Problem Notes None recorded. Procedures Surgical History Date Name Laterality Status Provider Name and Address Organization Details Recorded Time 01/06/20 21 laparoscopic sleeve gastrectomy completed Isaac Rush MD [address], [place], [address], [facility] 01/15/2021 14:52:48 Imaging Results Imaging Date Name Status LastModified by Organization Details LastModified Time 10/16/2019 electrocardiogram completed [facility] Informa tion not available 08/18/2020 19:28:01 10/05/2019 sleep study, ASV titration* completed [facility] [address], [place], [address], 08/18/2020 19:28:01 03/07/2019 electrocardiogram completed [facility] [address], [place], [address], 01/15/2021 14:49:04 01/15/2022 XR, shoulder, 2 or more view completed [address], [place], [address], 01/15/2022 11:21:54 01/18/2022 CT, abdomen + pelvis, w/ contrast completed [address], [place], [address], 07/05/2022 16:39:54 07/06/2022 electrocardiogram completed [employer] [facility] [address], [place], [address], 07/06/2022 16:52:04 07/05/2022 electrocardiogram completed [employer] [facility] [address], [place], [address], 07/08/2022 16:54:15 07/05/2022 electrocardiogram completed [employer] [facility] [address], [place], [address], 07/08/2022 16:54:37 07/05/2022 electrocardiogram completed [employer] [facility] [address], [place], [address], 07/08/2022 16:54:24 06/11/2024 CT, abdomen + pelvis, w/ contrast completed [address], [place], [address], 06/15/2024 09:31:25 Procedure Notes None recorded. Medical Equipment None Reported. Allergies No known drug allergies Medications Name Sig Start Date Stop Date Status Note LastModified by Organization Details LastModified Time celecoxib 200 mg capsule TAKE 1 CAPSULE BY MOUTH EVERY DAY 07/05 completed Not Available Not Available Not Available amoxicillin 500 mg capsule 01/09 completed Not Available Not Available Not Available doxycycline hyclate 100 mg capsule Take 1 capsule twice a day by oral route. 01/09 completed Not Available Not Available Not Available azithromyci n 250 mg tablet TAKE 2 TABLETS BY MOUTH ON DAY 1, THEN TAKE 1 TABLET BY MOUTH DAILY FOR 4 DAYS active Not Available Not Available No t Available hydrocodone 5 mg-acetamin ophen 325 mg tablet TAKE 1 TABLET BY MOUTH EVERY 6 HOURS NEEDED FOR PAIN 07/05 completed Not Available Not Available Not Available oxycodone 5 mg/5 mL oral solution 01/15 completed Not Available Not Available Not Available metronidazo le 500 mg tablet TAKE 1 TABLET BY MOUTH TWICE DAILY FOR 7 DAYS. NO ALCOHOL CONSUMPTI ON WHILE TAKING. 11/05 completed Not Available Not Available Not Available ciprofloxac in 500 mg tablet TAKE 1 TABLET BY MOUTH EVERY 12 HOURS 07/05 completed Not Available Not Available Not Available sulfamethox azole 800 mg-trimetho prim 160 mg tablet TAKE 1 TABLET BY MOUTH EVERY 12 HOURS FOR 5 DAYS active Not Available Not Available No t Available acetaminoph en 500 mg tablet 01/09 completed Not Available Not Available Not Available carvedilol 3.125 mg tablet Take 1 tablet twice a day by oral route. 01/15 completed Not Available Not Available Not Available baclofen 10 mg tablet TAKE 1 TABLET BY MOUTH TWICE DAILY 07/05 completed Not Available Not Available Not Available doxycycline monohydrate 100 mg capsule TAKE 1 CAPSULE BY MOUTH TWICE DAILY 07/05 completed Not Available Not Available Not Available oseltamivir 75 mg capsule 03/07 completed Not Available Not Available Not Available neomycin-po lymyxin-dex ameth 3.5 mg/mL-10,00 0 unit/mL-0.1 % eye drops 07/17 completed Not Available Not Available Not Available omeprazole 20 mg capsule,del ayed release TAKE 1 CAPSULE BY MOUTH EVERY DAY IN THE MORNING active Not Available Not Available No t Available metoprolol succinate ER 25 mg tablet,exte nded release 24 hr Take 1 tablet every day by oral route in the morning. active Not Available Not Available No t Available ergocalcife rol (vitamin D2) 1,250 mcg (50,000 unit) capsule TAKE 1 CAPSULE BY MOUTH EVERY 7 DAYS 01/15 completed Not Available Not Available Not Available ibuprofen 600 mg tablet 01/09 completed Not Available Not Available Not Available levofloxaci n 500 mg tablet Take 1 tablet every 24 hours by oral route for 7 days. 03/07 completed Not Available Not Available Not Available albuterol sulfate HFA 90 mcg/actuati on aerosol inhaler INHALE 2 PUFFS BY MOUTH EVERY 8 HOURS NEEDED 07/05 completed Not Available Not Available Not Available ondansetron 4 mg disintegrat ing tablet 01/15 completed Not Available Not Available Not Available naproxen 500 mg tablet 08/18 completed Not Available Not Available Not Available amoxicillin 875 mg-potassiu m clavulanate 125 mg tablet 01/09 completed Not Available Not Available Not Available metoprolol tartrate 25 mg tablet TAKE 1 TABLET BY MOUTH TWICE DAILY 01/15 completed Not Available Not Available Not Available nitrofurant oin monohydrate /macrocryst als 100 mg capsule TAKE 1 CAPSULE BY MOUTH EVERY 12 HOURS FOR 5 DAYS active Not Available Not Available No t Available Mucinex DM 30 mg-600 mg tablet,exte nded release 12 hr Take 1 tablet every 12 hours by oral route. 07/05 completed Not Available Not Available Not Available PreviDent 5000 Booster Plus 1.1 % dental paste USE IN PLACE OF REGULAR TOOTHPAST E NIGHTLY. EXPECTORA TE EXCESS AND DO NOT RINSE 01/15 completed Not Available Not Available Not Available Saxenda 3 mg/0.5 mL (18 mg/3 mL) subcutaneou s pen injector 08/18 completed Not Available Not Available Not Available EluRyng 0.12 mg-0.015 mg/24 hr vaginal ring INSERT 1 RING VAGINALLY AND LEAVE IN PLACE FOR 3 WEEKS THEN 1 WEEK OUT active Not Available Not Available No t Available ID NOW COVID-19 Test Kit TEST DIRECTED TODAY 07/05 completed Not Available Not Available Not Available Vitals Date Recorded Respiratory rate Body temperature Body height Body mass index (BMI) Body weight Provider Name and Address Organization Details Last Updated DateTime 9 18 /min 98.1 [degF] 154.94 cm 40.4 kg/m2 14808.7 7 g Fam Cadena [facility] 9 16:51:00 Date Recorded Heart rate Systolic blood pressure Diastolic blood pressure Provider Name and Address Organization Details Last Updated DateTime 07/17/2019 95 /min 140 mm[Hg] 85 mm[Hg] Isaac Rush MD [address], [place], [address], [facility] 07/17/2019 17:05:55 Date Recorded Respiratory rate Body height Body temperature Body mass index (BMI) Body weight Systolic blood pressure Diastolic blood pressure Provider Name and Address Organization Details Last Updated DateTime 0 18 /min 154.94 cm 97.9 [degF] 43.5 kg/m2 320414. 25 g 141 mm[Hg] 90 mm[Hg] Alessia Rojas [facility] 0 19:09:41 Date Recorded Heart rate Provider Name an d Address Organization Details Last Updated DateTime 08/18/2020 106 /min Isaac Rush MD [address], [place], [address], [facility] 08/18/2020 19:32:50 Date Recorded Body height Body mass index (BMI) Body weight Respiratory rate Body temperature Heart rate Systolic blood pressure Diastolic blood pressure Provider Name and Address Organization Details Last Updated DateTime 1 154.94 cm 40.8 kg/m2 88480.9 5 g 16 /min 98 [degF] 91 /min 112 mm[Hg] 75 mm[Hg] KALEB HUNTER [facility] 1 14:20:08 Date Recorded Body height Body mass index (BMI) Body weight Body temperature Heart rate Respiratory rate Systolic blood pressure Diastolic blood pressure Provider Name and Address Organization Details Last Updated DateTime 2 154.94 cm 29.5 kg/m2 58508.4 1 g 97.7 [degF] 112 /min 18 /min 125 mm[Hg] 88 mm[Hg] Rossy Castillo [facility] 2 11:14:24 Date Recorded Body height Heart rate Respiratory rate Body temperature Body mass index (BMI) Body weight Systolic blood pressure Diastolic blood pressure Provider Name and Address Organization Details Last Updated DateTime 2 154.94 cm 110 /min 18 /min 97.9 [degF] 28.9 kg/m2 52023.6 3 g 123 mm[Hg] 83 mm[Hg] Rossy Castillo [facility] 2 15:51:33 Social History Question Answer Notes LastModified by Organizat ion Details LastModified Time Tobacco Smoking Status Never Smoker Carmina Kaapdia [email or web address] [place] [facility] 05/19/2017 16:16:37 What Is Your Level Of Alcohol Consumption? Occasional [email or web address] Information not available 05/19/2017 Are You Currently Employed? Yes Information not available 05/19/2017 Which Illicit Or Recreational Drugs Have You Used? 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 Alone Information not available 05/19/2017 Marital Status Single Informatio n not available 05/19/2017 What Was The Date Of Your Most Recent Tobacco Screening? 01/15/2022 Information not available 01/15/2022 Sex: Unknown Functional Status Question Answer Note LastModified by Organization D etails LastModified Time Are you able to care for yourself? Yes Information n ot available 05/19/2017 Mental Status None recorded. Family History Relationship Description Onset Age of this Age Resolved Age Notes LastModified by Organization Details LastModified Time Mother Essential hypertension [email or web address] Not available 16:53:06 Medical History No medical history recorded. Gynecological History Statement/Question Response Date of Last Pap Smear Obstetrics History GPAL:G 0 P 0 0 0 0 Past Encounters Encounter ID Performer Location Encounter Start Date Encounter Closed Date Diagnosis/Indication Diagnosis SNOMED-CT Code Diagnosis ICD10 Code Diagnosis Note [id number] Isaac Rush MD [facility], [facility] [address] [place] [address] 05/19/2017 15:19:50 05/19/2017 17:03:24 Adult health examination 996077585 Z00.00 Overweight 251537579 E66 .3 Tattoo of skin 251371164 1 02 L81.8 Cholesterol screening 27 2599086 Z13.220 Screening for malignant neoplasm of cervix 500245472 Z12.4 per pt had PAP 03/2017 Active or passive immunization 250721076 Z23 Thyroid nodule 868238374 E04.1 [id number] Isaac Rush MD [facility], [facility] [address] [address] [place] [address] 05/04/2018 10:01:55 05/04/2018 10:50:33 Adult health examination 394879771 Z00.00 Pharyngitis 908734165 J0 2.9 Tattoo of skin 312680607 1 02 L81.8 Overweight 364684022 E66 .3 Screening for malignant neoplasm of cervix 753612834 Z12.4 per pt had PAP 04/2018 Active or passive immunization 786950970 Z23 Thyroid nodule 249698569 E04.1 [id number] LASHAY MCCLELLAN APN [employer], [facility] [address] [place] [address] 01/09/2019 11:57:49 01/09/2019 12:37:39 Pneumonia 100316546 J18.9 opacity noted on chest x ray - 01/06/19was rx augmentin on 01/01/19 was seen on 01/06/19 at [facility] - dx with FLu - rx tamiflu - has not continued augmentin - Influenza- like symptoms 615730427 R68.89 currently on tamiflu Tachycardia 1057897 R00. 0 113 -acutely ill -denies heart palpitatio ns, chest pain, or dizziness [id number] LASHAY MCCLELLAN APN [employer] [facility], [facility] [address] [place] [address] 03/07/2019 15:00:43 03/07/2019 15:37:17 Pneumonia 334293074 J18.9 opacity noted on chest x ray - 01/06/19was rx augmentin on 01/01/19 was seen on 01/06/19 at [facility] - dx with FLu - rx tamiflu - CT chest - normal 01/19/19 Tachycardia 4592458 R00. 0 event monitor completedf ollow up with Cards today - Obstructiv e sleep apnea syndrome 38293228 G47.33 03/14/19 - overnight sleep study scheduled [id number] Isaac Rush MD [employer], [facility] [address] [place] [address] 07/17/2019 16:36:01 07/17/2019 17:13:22 Body mass index 40+ - severely obese 373908857 Z68.41 Obstructiv e sleep apnea syndrome 21618906 G47.33 Pneumonia 412761366 J18. 9 Screening for malignant neoplasm of cervix 790450219 Z12.4 per pt had PAP 04/2019 Active or passive immunization 585856544 Z23 Screening procedure 2012 5006 Z13.9 per pt had optometry eval 06/2019 Sinus tachycardia 330212 01 R00.0 Tattoo of skin 493140841 1 02 L81.8 [id number] Isaac Rush MD [employer], [facility] [address] [place] [address] 08/18/2020 19:00:11 08/18/2020 19:37:50 Adult health examination 533830318 Z00.01 Sinus tachycardia 175189 01 R00.0 Obstructiv e sleep apnea syndrome 90264940 G47.33 mild on Sleep study 09/2019 Body mass index 40+ - severely obese 282148363 Z68.41 Tattoo of skin 661692299 1 02 L81.8 Screening for malignant neoplasm of cervix 475537810 Z12.4 per pt had PAP 04/2019 Active or passive immunization 648767776 Z23 Thyroid nodule 314751859 E04.1 [id number] Isaac Rush MD [employer], [facility] [address] [place] [address] 01/15/2021 14:13:25 01/15/2021 15:04:49 History of bariatric surgical procedure 884016020 Z98.84 gastric sleeve 01/06/21 Obstructiv e sleep apnea syndrome 99667300 G47.33 mild on Sleep study 09/2019 Tattoo of skin 110369865 1 02 L81.8 pls do labs from last visit Thyroid nodule 063831742 E04.1 per pt had @ [facility] Screening for malignant neoplasm of cervix 482584086 Z12.4 per pt had PAP 04/2019 Active or passive immunization 619568722 Z23 [id number] Isaac Rush MD [employer], [facility] [address] [place] [address] 01/15/2022 11:03:34 01/15/2022 11:49:21 Neck pain 54296046 M54.2 X ray -ve , better with baclofenof f work note 01/11/22 tii 01/15/22 Pain of ri ght shoulder joint 2436172676 6229364 M25.511 -ve X ray , resolved History of bariatric surgical procedure 277333583 Z98.84 gastric sleeve 01/06/21 Body mass index 25-29 - overweight 503045026 Z68.29 educationl ost 60 LBs after gastric sleeve Obstructiv e sleep apnea syndrome 22111341 G47.33 mild on Sleep study 09/2019res olved after weight loss Tattoo of skin 653837923 1 02 L81.8 pls do labs from last visit Thyroid nodule 365633740 E04.1 per pt had @ [facility] Vitamin D deficiency 347 27727 E55.9 Cholesterol screening 27 9273725 Z13.220 Screening procedure 20126 Z13.9 per pt had optometry eval 06/2019 Screening for malignant neoplasm of cervix 953005551 Z12.4 per pt had PAP 04/2019 Active or passive immunization 487616577 Z23 decline any shots Impacted c erumen in right ear 2983676814 857313 H61.21 [id number] Isaac Rush MD [facility], [facility] [address] [place] [address] 07/05/2022 15:36:04 07/05/2022 17:05:44 Preoperative cardiovascular examination 157671786 Z01.810 low risk for surgery , lipo History of SARS-CoV-2 29 81665164 39734153 Z86.16 tested +ve 11/16/21 and 06/29/22 History of bariatric surgical procedure 002335871 Z98.84 gastric sleeve 01/06/21 Tattoo of skin 457863119 1 02 L81.8 pls do labs from last visit Thyroid nodule 249181425 E04.1 per pt had @ [facility] Vitamin D deficiency 347 51495 E55.9 Sinus tachycardia 586724 01 R00.0 Screening for malignant neoplasm of cervix 071576887 Z12.4 per pt had PAP 2021 Active or passive immunization 120159775 Z23 decline any shots Health Concerns Section Related Observation LastModified by Organization Detai ls LastModified Time None Recorded Concern Status LastModified by Organization Details LastModified Time None Recorded Advance Directives Directive None Recorded Payers Encounter Date Sequence Insurance Name Policy Number Policy Pearl Covered Member ID Pearl Member ID Guarantor Name 07/17/2019 1 [place] [id number] Carolyn Bartholomew [id number] Carolyn Bartholomew 08/18/2020 1 [facility] [id number] Carolyn Bartholomew [id number] 1 Carolyn Bartholomew 01/15/2021 1 [facility] [id number] Carolyn Bartholomew [id number] 1 Carolyn Bartholomew 01/15/2022 1 [facility] [id number] Carolyn Bartholomew [id number] 1 Carolyn Bartholomew 07/05/2022 1 [facility] [id number] Carolyn Bartholomew [id number] 1 Carolyn Bartholomew Notes Date Note Type Note Provider Name and Address Organization Details Recorded Time 07/17/2019 text/html Hypertension F/UReported bypatient.Medications: taking medications as directed; no side effects from medication Lifestyle:regular exercise; limiting/avoiding salt; compliant with low salt diet Associated Symptoms:no dizziness; no lightheadedness; no chest pain; no shortness of breath; no palpitations; no edema; no calf pain with exertion; no headache Isaac Rush MD [address] [place] [address], [place], [address], [facility] 07/17/2019 17:11:30 08/18/2020 text/html Hypertension F/UReported bypatient.Medications: taking medications as directed; no side effects from medication Lifestyle:regular exercise; limiting/avoiding salt; compliant with low salt diet Associated Symptoms:no dizziness; no lightheadedness; no chest pain; no shortness of breath; no palpitations; no edema; no calf pain with exertion; no headacheMedicare Annual Wellness VisitReported bypatient.Diet and Nutrition:healthy diet Fracture Risk:no history of fractures; no recent explained fracture; no sudden unexplained fractures; no previous musculoskeletal injuries Physical Activity:recent increase in physical activity; good physical condition; discussed exercise habits Depression Risk:never feels sad, empty, or tearful; no loss of interest in activities; no significant changes in weight; no sleep disturbances or insomnia; no agitation; no loss of energy; no feelings of worthlessness or guilt; no thoughts of suicide; no history of depression; no history of mood disorders Orientation:no disorientation to time; no disorientation to date; no disorientation to place Concentration and Memory:no decreased concentrating ability; no memory lapses or loss; does not forget words Speech/Motor difficulties:no speech difficulties; no difficulty expressing formulated concepts; no difficulty with fine manipulative tasks; no difficulty writing/copying; no slowed reaction time; does not knock things over when trying to pick them up Hearing:no loss of hearing Vision:no vision problems Falls Risk Assessment:no frequent falls while walking; no fall in the past year; no dizziness/vertigo Home Safety:use of seatbelts; no vision or hearing loss while driving not taking coreg , wants ref for bariatric surg Isaac Rush MD [address] [facility] [address], [place], [address], [facility] 08/18/2020 19:35:22 01/15/2021 text/html Hypertension F/UReported bypatient.Medications: taking medications as directed; no side effects from medication Lifestyle:regular exercise; limiting/avoiding salt; compliant with low salt diet Associated Symptoms:no dizziness; no lightheadedness; no chest pain; no shortness of breath; no palpitations; no edema; no calf pain with exertion; no headache she had gastric sleeve on 01/06/21slow recovery Isaac Rush MD [address] [facility] [address], [place], [address], [facility] 01/15/2021 14:56:55 01/15/2022 text/html Hypertension F/UReported bypatient.Medications: taking medications as directed; no side effects from medication Lifestyle:regular exercise; limiting/avoiding salt; compliant with low salt diet Associated Symptoms:no dizziness; no lightheadedness; no chest pain; no shortness of breath; no palpitations; no edema; no calf pain with exertion; no headache neck pain and Rt shoulder pain , 4-5 days , no injury , No red flags Isaac Rush MD [address], [place], [address], [facility] 01/15/2022 11:40:21 07/05/2022 text/html Hypertension F/UReported bypatient.Medications: taking medications as directed; no side effects from medication Lifestyle:regular exercise; limiting/avoiding salt; compliant with low salt diet Associated Symptoms:no dizziness; no lightheadedness; no chest pain; no shortness of breath; no palpitations; no edema; no calf pain with exertion; no headache Isaac Rush MD [address] [place] [address] [address], [place], [address], [facility] 07/05/2022 16:41:07 OBGyn Episode No OBEpisode recorded.
--- OUTSIDE RECORDS SUMMARY | 2025-03-06 16:57 | XMS_ITS | CONTINUITY OF CARE DOCUMENT ---
Author Name rafael sabinochaim Address Unknown Organization [facility] Address [address] [place] [address] Phone [phone] Care Team Providers Care Printing And Stamping Supervisor Name Role Phone Kimi Pena MD Unavailable KIMO CORDOVA MDUNIR Unavailable KIMO CORDOVA MDUNIR Unavailable [phone] PROBLEMS Condition Status Date Provider Notes Palpitations active Kimi Pena MD Family History of Hypertension: completed - Kimo Pena MD Sinus tachycardia active Kimi Pena MD JAQUELIN active Kimi Pena MD Obesity active Kimi Pena MD Preop exam active Kimi Pena MD ENCOUNTERS Date Type Provider Location Encounter Diag nosis - In-person encounter Office Visit Kimi Pena MD [facility] - In-person encounter Office Visit Kimi Pena MD [facility] - In-person encounter Office Visit Kimi Pena MD [facility] Family History of Hypertension:Preop exam - In-person encounter Office Visit Kimi Pena MD [facility] JAQUELIN - In-person encounter Office Visit Kimi Pena MD [facility] PalpitationsSinus tachycardiaOSAObesity VITAL SIGNS Date Observation Value Provider Body Mass Index (Ratio) 30.98 kg/m2 Grac bridger Epstein blood pressure, diastolic 60 mm[Hg] Luanne [facility] blood pressure, systolic 104 mm[Hg] More [facility]ic blood pressure, diastolic 60 mm[Hg] Iris Resendez blood pressure, systolic 104 mm[Hg] Rashida Resendez respiratory rate E&M 16 /min Jose Luis Resendez weight E&M 169.4 [lb_av] Cosme herreraon height E&M 62 [in_i] Cosme burchon Body Mass Index (Ratio) 41.88 kg/m2 Alexrenny Hammer pulse rate 114 /min Irma Leary faiza blood pressure, diastolic 70 mm[Hg] Cy alber Kim blood pressure, systolic 140 mm[Hg] Denise fabricio Kim blood pressure, cuff size regular Cy alber Kim oxygen saturation, oximetry 97 % Irma Kim respiratory rate E&M 16 /min Irma Kim weight E&M 229 [lb_av] rIma Leary l height E&M 62 [in_i] Irma Urielbel l Body Mass Index (Ratio) 42.25 kg/m2 Gera Young blood pressure, cuff size large Ke rri Pierre blood pressure, diastolic 80 mm[Hg] Ke rri Darenuenenfhi blood pressure, systolic 130 mm[Hg] Jimmie Jay oxygen saturation, oximetry 98 % Judith Pierre respiratory rate E&M 16 /min Judith esteban pulse rate 135 /min Judith Mcdermott lder weight E&M 231 [lb_av] Judith Escalonae lder height E&M 62 [in_i] Judith Escalonae lder Body Mass Index (Ratio) 38.77 kg/m2 Aquiles Pena MD blood pressure, diastolic 70 mm[Hg] Jerad Brandby blood pressure, systolic 130 mm[Hg] Jakub abimbola Brandby oxygen saturation, oximetry 99 % Mckenna Brandby pulse rate 110 /min Mckenna Bethany respiratory rate E&M 18 /min Mckenna Colton weight E&M 212 [lb_av] Mckenna Bethany blood pressure, cuff size regular Jerad Brandby height E&M 62 [in_i] Mckenna Bethany Body Mass Index (Ratio) 38.59 kg/m2 Aquiles Pena MD blood pressure, cuff size large Ke angelai Darenjigneshanitahi blood pressure, diastolic 74 mm[Hg] Ke rri Darenuenenfroryer blood pressure, systolic 106 mm[Hg] Jimmie lauri Jay oxygen saturation, oximetry 99 % Judithlauri Jay respiratory rate E&M 18 /min Judith esteban pulse rate 105 /min Judithlauri Mcdermott lder weight E&M 211 [lb_av] Judith Polae lder height E&M 62 [in_i] Judithlauri Diggsnenfe lder ALLERGIES No Known Drug Allergies RESULTS Date Observation Value Provider Reference Range Interpretation Location LDL cholesterol, serum 100 mg/dL iKmi Pena MD thyroid stimulating hormone, serum 1.140 u[IU]/mL [facility] 0.450-4.500 ferritin, serum 58 ng/mL [facility] 15-150 hemoglobin A1C, blood, as % of total hemoglobin 5.3 % [facility] 4.8-5.6 free thyroxine index 1.5 [facility] 1.2-4.9 triiodothyronine resin uptake 19 % [facility] 24-39 Low thyroxine, serum, total 8.1 ug/dL [facility] 4.5-12.0 iron saturation percent, serum 29 % [facility] 15-55 iron, serum 98 ug/dL [facility] 27-159 iron binding capacity, unsaturated 238 ug/dL [facility] 090-094 3734/04/ 02 iron binding capacity, total 336 ug/dL [phone]/04/ 02 lipoprotein, beta, serum, point, quantitative, calculated 100 mg/dL [facility] 0-99 High very low density lipoproteins 14 mg/dL [facility] 5-40 HDL cholesterol, serum 59 mg/dL [facility] >39 triglyceride, serum, random 71 mg/dL [facility] 0-149 cholesterol, serum 173 mg/dL [facility] 693-211 0390/04/ 02 basophil count, absolute 0.0 x10E3/uL [facility] 0.0-0.2 Eosinophil Absolute Count 0.1 X10E3/UL [facility] 0.0-0.4 monocyte count, blood, automated 0.5 X10E3/UL [facility] 0.1-0.9 lymphocyte count, blood, automated 2.8 X10E3/UL [facility] 0.7-3.1 Absolute Neutrophils 6.5 X10E3/UL [facility] 1.4-7.0 basophils as percent of blood leukocytes 0 % [facility] Not Estab. eosinophils as percent of blood leukocytes 1 % [facility] Not Estab. monocytes as percent of blood leukocytes 5 % [facility] Not Estab. lymphocytes as percent of blood leukocytes 28 % [facility] Not Estab. neutrophils as percent of blood leukocytes 66 % [facility] Not Estab. platelet count 412 X10E3/UL [facility] 150-379 High red blood cell distribution width 13.9 % [facility] 12.3-15.4 mean corpuscular hemoglobin concentration, RBC 32.5 G/DL [facility] 31.5-35.7 mean corpuscular hemoglobin, RBC 30.2 pg [facility] 26.6-33.0 mean corpuscular volume, RBC 93 fL [facility] 79-97 hematocrit, blood 37.2 % [facility] 34.0-46.6 hemoglobin, blood 12.1 g/dL [facility] 11.1-15.9 erythrocyte (RBC) count 4.01 X10E6/UL [facility] 3.77-5.28 leukocyte count, blood 10.0 X10E3/UL [facility] 3.4-10.8 alanine aminotransferase (SGPT), serum 13 1/L [facility] 0-32 aspartate aminotransferase (SGOT), serum 16 1/L [facility] 0-40 alkaline phosphatase, serum 96 1/L [facility] 39-117 bilirubin, serum, total 0.3 mg/dL [facility] 0.0-1.2 albumin/globulin ratio, serum 1.3 [facility] 1.2-2.2 globulin, serum 3.2 [facility] 1.5-4.5 albumin, serum 4.3 g/dL [facility] 3.5-5.5 protein, total, serum 7.5 g/dL [facility] 6.0-8.5 calcium, serum 9.7 mg/dL [facility] 8.7-10.2 carbon dioxide, venous blood 23 mmol/L [facility] 20-29 chloride, serum 105 mmol/L [facility] 96-106 potassium, serum 4.4 mmol/L [facility] 3.5-5.2 sodium, serum 144 mmol/L [facility] 329-515 6676/04/ 02 urea nitrogen/creatinine ratio, serum 22 [facility] 9-23 eGFR if 139 mL/min/{1 .73_m2} [facility] >59 eGFR if not 121 mL/min/{1 .73_m2} [facility] >59 creatinine, serum 0.67 mg/dL [facility] 0.57-1.00 urea nitrogen, blood 15 mg/dL [facility] 6-20 blood glucose, random 75 mg/dL [facility] 65-99 HISTORY OF MEDICATION USE Medication Status Instructions Dates Provider Indications Com ments metoprolol tartrate 25 mg tablet active 1 tablet twice a day Kimi Pena MD MULTIVITAMINS CAPS active 1 tablet once a day Judith Jay COREG 3.125 MG ORAL TABLET completed ONE TAB. TWICE DAILY - Kimi Pena MD BYSTOLIC 5 MG ORAL TABLET completed ONE TAB. DAILY - Neha TORRES MELATONIN TABLET completed at bedtime - Mckenna Segura NuvaRing 0.12-0.015 mg/24 hr ring active as directed Judith Jay SOCIAL HISTORY Date Observation Value Provider smoking status Never smoker Kimi cronin MD social history reviewed E&M revi ewed - no changes required Kimi Pena MD social history E&M S moking History: P atient has never smoked. Kimi Pena MD social history reviewed E&M revi ewed - no changes required Kimi Pena MD smoking status Never smoker Irma harmon social history E&M Smoking Histo ry: P atient has never smoked. Kimi Pena MD social history reviewed E&M revi ewed - no changes required Kimi Pena MD smoking status Never smoker Judith Yojana fischer social history E&M S moking History: Jackson molina has never smoked. Kimi Pena MD social history reviewed E&M revi ewed - no changes required Kimi Pena MD smoking status Never smoker Mckenna Segura number of grandchildren Kimi Pena MD social history E&M S moking History: Jackson molina has never smoked. Kimi Pena MD social history reviewed E&M revi ewed - no changes required Kimi Pena MD smoking status Never smoker Judith fischer FAMILY HISTORY Family Member Condition Father Negative FH of Coron basia Artery Disease Mother Family History of Hy pertension: INSURANCE PROVIDERS Payer name Policy type / Coverage type [employer] red [place] ID [employer] [id number] ADVANCE DIRECTIVES Name Date DISCUSSED - NO DECISION MADE TREATMENT PLAN Date Name Performer [id number],C,R ecent gastric sleeve surgery at [facility]. She has lost 60 lbs and is practicing dietary discretion. Kimi Pena MD [id number],C,N o palpitations. In sinus rhythm on EKG. She continues on Metoprolol. Kimi Pena MD Cardiology:Recent ga stric sleeve surgery at [facility]. She has lost 60 lbs and is practicing dietary discretion. Kimi Pena MD Cardiology:No palpit ations. In sinus rhythm on EKG. She continues on Metoprolol. Kimi Pena MD Cardiology follow up :Planned fo r gastric sleeve. Evert Hammer Cardiology follow up :Compliant. Has noted improvement in symptoms with CPAP. Evert Hammer Cardiology follow up :Improvement in heart rate with Metoprolol Tartrate 25mg BID which she continues. Her AppleWatch shows heart rates consistently under 100 beats per minute. Evert Hammer Cardiology follow up :Planned for gastric sleeve which she may undergo at an acceptable level of cardiovascular risk. Evert Hammer Cardiology Follow up :She is in the process of being evaluated for weight loss surgery. Andrea Young Cardiology Follow up :Already completed titration study. She was advised to use her CPAP consistently, every night. Treating her sleep apnea will likely improve her HR control. Kimi Pena MD Cardiology Follow up :Patient symptomatic with palpitations. Monitor from 2019 showed persistent sinus tach. Remains tachycardic today. Metoprolol will be more effective than Coreg and I will discontinue her Coreg and start Metoprolol 25mg twice a day. She was also advised on the importance of treating her sleep apnea and using the CPAP every night. These two changes will help to slow her HR. Kimi Pena MD Cardiology:Weight loss advised M jessie Pena MD Cardiology:Mild JAQUELIN on home sleep study. A titration has been arranged. Kimi Pena MD Cardiology:Patient s ymptomatic with palpitations. Recent monitor showed persistent sinus tach. Will start Bystolic 5mg daily. Kimi Pena MD Cardiology New Patient :Weight l oss advised. Kimi Pena MD Cardiology New Patie nt :Etiology unclear. Will get the blood results from your office. A telesentry monitor and echocardiogram have been arranged. Kimi Pena MD Cardiology New Patie nt :She admits to interrupted sleep and being tired on waking in the morning. Will arrange home sleep study. Kimi Pena MD Date Name COMPREHENSIVE METABO LIC PANEL, W/EGFR HEMOGLOBIN A1c TSH, 3RD GENERATION W/REFLEX TO FT4 THYROID PANEL LIPID PANEL IRON AND TOTAL IRON BINDING CAPACITY FERRITIN CBC (INCLUDES DIFF/P LT) COMPREHENSIVE METABO LIC PANEL, W/EGFR HEMOGLOBIN A1c THYROID PANEL WITH T SH, 3RD GENERATION LIPID PANEL IRON AND TOTAL IRON BINDING CAPACITY FERRITIN CBC (INCLUDES DIFF/P LT) Sleep Study Home Mobile Cardiac Tele Complete Echo HISTORY OF PROCEDURES Procedure Date Procedure Name Provider Procedure Notes S tatus EKG Kimi Pena MD complet ed EKG Kimi Pena MD complet ed EKG Kimi Pena MD complet ed EKG Kimi Pena MD complet ed Event Monitor Kimi Pena MD comp leted EKBlair Pena MD complet ed
--- OUTSIDE RECORDS SUMMARY | 2025-03-06 16:57 | XMS_ITS | Continuity of Care Document ---
Author Organization [facility] Address [address] [place] [address] Care Team Providers Care Firefighting Equipment Specialist Name Role Phone Unavailable Primary Care Provider Unavailabl e Encounters Date Type Department Care Team Description 07/24/2019 Scan [facility] Health Information Management [address] [place] [id number] Scanned, Documents Lab (SCAN) Social History Smoking Status as of 03/06/2025 Tobacco Use Types Packs/Day Years Used Date Smoking Tobacco: Never Assessed Sex and Gender Information Value Date Recorded Sex Assigned at Not on file Legal Sex Female 9:40 AM CDT Gender Identity Not on file Sexual Orientation Not on file Plan of Treatment Not on file Procedures Procedure Name Priority Date/Time Associated Diagnosis Comments OUTSIDE LAB (SCAN ORDER) Routine 07/24/2019 Results * OUTSIDE LAB (07/24/2019) 07/24/2019 us Documents Scanned SCANNING Final Result
--- OUTSIDE RECORDS SUMMARY | 2025-03-06 18:03 | XMS_ITS | Clinical Summary ---
Author Organization [facility] [employer] Address [address] [place] [address] Care Team Providers Care Banana Grader Name Role Phone Isaac Rush MD Primary Care Provider [phone] Source Comments [facility] [employer],non-owned Affiliates and Associated Physician Practices is amultiple site organization consisting of ambulatory clinics and hospital sitesin [place], [place], [place] and [place]. This disclosure is being madepursuant to the Care Everywhere program and may not contain all information available regarding this patient. Last updated 18.[facility] [employer] Allergies No known active allergies Medications * [...] Active vitamin D, ergocalciferol, (DRISDOL) 1.25 MG (43454 UT) capsule Take 1 (one) capsule by [...] AM CDT Legal Sex Female 11:48 AM [employer] Gender Identity Female 07/01/2021 11:46 AM CDT Sexual Orientation Straight 07/01/2021 11 :46 AM CDT Last Filed Vital Signs Vital Sign Reading Time Taken Comments Blood Pressure 120/80 01/26/2022 1:32 PM [employer] Pulse 119 01/26/2022 1:32 PM [employer] Temperature 36.8 C (98.3 F) 01/26/2022 1:32 PM [employer] Respiratory Rate 16 11/15/2021 3:24 PM [employer] Oxygen Saturation 98% 11/15/2021 3:24 PM [employer] Inhaled Oxygen Concentration - - Weight 68.9 kg (152 lb) 01/26/2022 1:32 PM [employer] Height 157.5 cm (5' 2 ) 01/26/2022 1:32 PM [employer] Body Mass Index 27.8 01/26/2022 1:32 PM [employer] Plan of Treatment Health Maintenance Due Date [...] patient's age to complete this topic Insurance [facility] CIGNA Advance Directives * Full Code (Latest Code Status on File) Date Activated Date Inactivated Comments 01/06/2021 12:20 PM 01/07/2021 8:32 PM Care Teams Banana Grader Relationship Specialty Start Date End Date Isaac Rush MD [address] [place] [address] PCP - General Internal Medicine 01/29/18
--- OUTSIDE RECORDS SUMMARY | 2025-03-06 18:03 | XMS_ITS | Continuity of Care Document ---
Author Organization [facility] Address [address] [place] [address] Care Team Providers Care Overnight Babysitter Name Role Phone Unavailable Primary Care Provider Unavailabl e Encounters Date Type Department Care Team Description 07/24/2019 Scan [facility] Health Information Management [address] [place] [id number] Scanned, Documents Lab (SCAN) Social History Smoking [...]
--- OUTSIDE RECORDS SUMMARY | 2025-03-06 18:03 | XMS_ITS | CONTINUITY OF CARE DOCUMENT ---
Author Name rafael sabinochaim Address Unknown Organization [facility] Address [address] [place] [address] Phone [phone] Care Team Providers Care Equipment Service Lead Name Role Phone Kimi Pena MD Unavailable [phone] KIMO CORDOVA MDUNIR Unavailable KIMO CORDOVA MDUNIR Unavailable PROBLEMS Condition Status Date Provider Notes Palpitations active Kimi Pena MD Family History of Hypertension: completed - Kimo Pena MD Sinus tachycardia active Kimi Pena MD JAQUELIN active Kimi Pena MD Obesity active Kimi Pena MD Preop exam active Kimi Pena MD ENCOUNTERS Date Type Provider Location Encounter Diag nosis - In-person encounter Office Visit Kimi Pena MD [facility] - In-person encounter Office Visit Kimi Pena MD [facility] - In-person encounter Office Visit Kimi Pena MD [facility] Family History of Hypertension:Preop exam - In-person encounter Office Visit Kimi Pena MD [facility] JAQUELIN - In-person encounter Office Visit Kimi Pena MD [facility] PalpitationsSinus tachycardiaOSAObesity VITAL SIGNS Date Observation [...] Kim blood pressure, systolic 140 mm[Hg] Denise fabrciio Kim blood pressure, cuff size regular Cy alber Kim oxygen saturation, oximetry 97 % Irma Kim respiratory rate E&M 16 /min Irma Kim weight E&M 229 [lb_av] Irma Leary l height E&M 62 [in_i] Irma [...] lder Body Mass Index (Ratio) 38.77 kg/m2 Aquiels Pena MD blood pressure, diastolic 70 mm[Hg] Jerad Brandby blood pressure, systolic 130 mm[Hg] Jakub abimbola Brandby oxygen saturation, oximetry 99 % Mckenna Brandby pulse rate 110 /min Mckenna [place] respiratory rate E&M 18 /min Mckenna [place] weight E&M 212 [lb_av] Mckenna [place] blood pressure, cuff size regular Jerad Brandby height E&M 62 [in_i] Mckenna [place] Body Mass Index (Ratio) 38.59 kg/m2 Aquiles [...] Interpretation Location LDL cholesterol, serum 100 mg/dL Kimi Pena MD thyroid stimulating hormone, serum 1.140 [...] iron binding capacity, unsaturated 238 ug/dL [facility] [phone]/04/ 02 iron binding capacity, total 336 [phone]/04/ 02 lipoprotein, beta, serum, point, quantitative, calculated 100 mg/dL [facility] 0-99 High very low density lipoproteins 14 mg/dL [facility] 5-40 HDL cholesterol, serum 59 mg/dL [facility] >39 triglyceride, serum, random 71 mg/dL [facility] 0-149 cholesterol, serum 173 mg/dL [facility] [phone]/04/ 02 basophil count, absolute 0.0 x10E3/uL [facility] [...] [facility] 3.5-5.2 sodium, serum 144 mmol/L [facility] [phone]/04/ 02 urea nitrogen/creatinine ratio, serum 22 [facility] [...] Payer name Policy type / Coverage type [employer] red [employer] ID [email or web address] [id number] ADVANCE DIRECTIVES Name Date DISCUSSED - NO DECISION MADE TREATMENT PLAN Date Name Performer [id number],C,R ecent gastric sleeve surgery at [facility]. She has lost 60 lbs and is practicing dietary discretion. Kimi Pena MD [id number],C,N o palpitations. In sinus rhythm on EKG. She continues on Metoprolol. Kimi Pena MD Cardiology:Recent ga stric sleeve surgery at [facility]. She has lost 60 lbs and is [...]
[2025-03-06] MEDS: HYDROcodone/acetaminophen (*CRX) 5-325 MG TABLET 1 TAB PO (18:05)
[2025-03-06 18:13] LABS: BEDSIDEPREGUCG Negative (Negative)
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
--- NOTE | 2025-03-06 19:30 | PC.NURSE ---
Assumed care of pt after receiving bedside report from YOLANDA Josue. @ [phone]
[2025-03-06 20:20] VITALS: BP 130/82; PULSE 107; RESP 20; O2SAT 100
== END 2025-03-06 20:23 | disposition home or self-care (01) ==
PROVIDERS: Emergency Provider Physician Assistant; PCP Internal Medicine
DX: S22.080A Wedge compression fracture of T11-T12 vertebra, initial encounter for closed fracture (principal); S32.010A Wedge compression fracture of first lumbar vertebra, initial encounter for closed fracture; S32.020A Wedge compression fracture of second lumbar vertebra, initial encounter for closed fracture; S32.030A Wedge compression fracture of third lumbar vertebra, initial encounter for closed fracture; G47.30 Sleep apnea, unspecified; Z98.84 Bariatric surgery status; V48.5XXA Car driver injured in noncollision transport accident in traffic accident, initial encounter
CPT/HCPCS: 70450; 70486; 71250; 72125; 72128; 72131; 74176; 81025; 99284; A9270

== ENCOUNTER 2025-10-07 03:46 | Emergency (ER) | payer OTHER, SELFPAY ==
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
--- NOTE | ~2025-10-07 | CT_ITS ---
EXAMINATION: CT brain wo con DATE: 10/07/2025 08:47 INDICATION: Injury TECHNIQUE: Computed tomography (CT) of the head was performed without intravenous contrast. The dose-length product was 681.00 mGy-cm. COMPARISON: March 06, 2025 FINDINGS: No gross intracranial mass effect or hemorrhage. No large acute ischemic event. Calvarial structures appear stable. IMPRESSION: 1. No gross intracranial injury or abnormality. Reviewed, dictated and finalized at location A. IDE SALESPERSON
--- OUTSIDE RECORDS SUMMARY | 2025-10-07 03:50 | XMS_ITS | Clinical Summary ---
Author Organization [facility] [employer] Address [address] [place] [address] Care Team Providers Care Voice Professor Name Role Phone Unavailable Primary Care Provider Unavailabl e Source Comments [facility],non-owned Affiliates and Associated Physician Practices is amultiple site organization consisting of ambulatory clinics and hospital sitesin [place], [place], [place] and [place]. This disclosure is being madepursuant to the Care Everywhere program and may not contain all information available regarding this patient. Last updated 18.[facility] [employer] Allergies No known active allergies Medications * Be aware that medications may not be up to date on this document. Alwaysverify current medications with the patient. etonogestrel-e thinyl estradiol (NUVARING) 0.12-0.015 MG/24HR vaginal ring Insert 1 device into the vagina as directed Remove ring after 3 weeks, followed by 1 week-rest, then insert new ring Active metoprolol tartrate (LOPRESSOR) 25 MG tablet Take 25 mg by mouth 2 times daily 1 Active magnesium hydroxide (MILK OF MAGNESIA) 400 MG/5ML suspension Take 15 mL by mouth once daily 1 Active ondansetron, disintegrating , (ZOFRAN ODT) 4 MG tablet Take 1 (one) tablet by mouth every 6 hours as needed for Nausea/Vomiting Allow tablet to dissolve on the tongue 20 tablet 1 Active vitamin D, ergocalciferol , (DRISDOL) 1.25 MG (59067 UT) capsule Take 1 (one) capsule by [...] once daily 30 capsule 5 1 Active traMADol (Ultram) 50 MG tablet Take 1 (one) tablet by mouth every 8 hours as needed for Pain 28 tablet 5 Active ketorolac (Toradol) 10 MG tablet Take 1 (one) tablet by mouth every 8 hours as needed for Pain 50 tablet 5 Active acetaminophen (Tylenol) 500 MG tablet Take 2 (two) tablets by mouth every 8 hours as needed for Fever or Pain Maximum allowable Acetaminophen amount = 4 Grams (4000 mg) / 24 hours. 100 tablet 5 Active Active Problems Problem Noted Date Diagnosed Date History of sleeve gastrectomy 01/06/2021 Morbid obesity 01/06/2021 Family History Medical History Relation Name Comments Hypertension Mother Relation Name Status Comments Mother Social History Tobacco Use Types Packs/Day Years Used Date Smoking Tobacco: Never Smokeless Tobacco: Never Tobacco Cessation:Counseling Given: Not Answered Alcohol Use Standard Drinks/Week Comments Yes 0 (1 standard drink = 0.6 oz pur e alcohol) occasionally PHQ-2 Answer Date Recorded Patient Health Questionnaire-2 Score 3 04/16/2025 Comments No Sex and Gender Information Value Date Recorded Sex Assigned at Female 07/01/2021 11:46 AM CDT Legal Sex Female 11:48 AM [employer] Gender Identity Female 07/01/2021 11:46 AM CDT Sexual Orientation Straight 07/01/2021 11 :46 AM CDT Last Filed Vital Signs Vital Sign Reading Time Taken Comments Blood Pressure 154/106 04/05/2025 12:19 PM CDT Pulse 101 04/05/2025 10:49 AM CDT Temperature 36.7 C (98 F) 04/05/2025 7:38 AM CDT Respiratory Rate 21 04/05/2025 12:19 PM CDT Oxygen Saturation 100% 04/05/2025 12:19 PM CDT Inhaled Oxygen Concentration - - Weight 78.3 kg (172 lb 9.6 oz) 04/17/2025 11:20 AM CDT Height 154.9 cm (5' 1) 04/05/2025 7:38 AM CDT Body Mass Index 32.61 04/05/2025 7:38 AM CDT Plan of Treatment Health Maintenance Due Date Last Done Comments HIV SCREENING 2006 HEPATITIS C SCREENING 10/12/2009 DTAP/TDAP/TD VACCINES (1 - Tdap) 2010 HEPATITIS B VACCINE (1 of 3 - 19+ 3-dose series) 2010 PAP SMEAR 2012 HPV VACCINE (1 - 3-dose SCDM series) 2018 DEPRESSION SCREENING 11/21/2024 COVID-19 VACCINE (1 - 2023-2 5 season) 2025 INFLUENZA VACCINE (#1) 2025 08/18/2020 ZOSTER VACCINE (1 of 2) 2041 HIB [...] patient's age to complete this topic Insurance [facility] [place] [employer] [place] [place] Advance Directives * Full Code (Latest Code Status on File) Date Activated Date Inactivated Comments 01/06/2021 12:20 PM 01/07/2021 8:32 PM
--- OUTSIDE RECORDS SUMMARY | 2025-10-07 03:50 | XMS_ITS | Data Portability ---
Author Organization [facility], [employer] Address [address] [facility] [address] [place] [address] Assessment Encounter Date Assessment Date Assessment LastModified [...] TSH + free T4, serum 2021 022 [facility] (Lab), [address], [place], [address], 13:45:10 CBC w/ auto diff 2021 022 [facility] (Lab), [address] [facility] [address] [place] [address], [address], 5 13:45:10 CMP, serum or plasma 2021 [facility] (Lab), [facility] [address], [address], 5 13:45:10 magnesium , serum or plasma 2021 [facility] (Lab), [facility] [address], [address], 5 13:45:10 hepatitis C Ab, serum 2021 [facility] (Lab), [address] [place] [address], [address], 5 13:45:10 vitamin D, 25-hydrox y, total, serum 2021 [facility] (Lab), [facility] [address], [address], 13:45:10 vitamin B12, serum 2021 [facility] (Lab), [facility] [address], [address], 5 13:45:10 TSH + free T4, serum 2021 [facility] (Lab), [facility] [address], [address], 2 08:25:02 lipid panel w/ direct LDL, serum 2021 [facility] (Lab), [address] [place] [address], [address], 03/04/202 2 08:25:03 hepatitis C Ab, serum 2021 022 [facility] (Lab), [address] [place] [address], [address], 2 08:25:03 vitamin D, 25-hydrox y, total, serum [address] (Lab), [address] [place] [address], [address], 2 17:32:05 vitamin B12, serum [address] (Lab), [address] [place] [address], [address], 2 17:32:05 magnesium , serum or plasma 2021 022 [facility] (Lab), [address] [place] [address], [address], 2 08:25:03 CBC w/ auto diff 2021 022 [facility] (Lab), [address] [place] [address], [address], 2 08:25:03 CMP, serum or plasma 2021 022 [facility] (Lab), [address] [place] [address], [address], 2 08:25:03 TSH + free T4, serum [address] (Lab), [address] [place] [address], [address], 0 09:19:38 magnesium , serum or plasma [address] (Lab), [address] [place] [address], [address], 0 09:19:38 lipid panel, serum [address] (Lab), [address] [place] [address], [address], 0 09:19:39 CMP, serum or plasma [address] (Lab), [address] [place] [address], [address], 0 09:19:39 CBC w/ auto diff [address] (Lab), [address] [place] [address], [address], 0 09:19:39 hepatitis C Ab, serum [address] (Lab), [address] [place] [address], [address], 0 09:19:38 TSH, serum or plasma [address] (Lab), [address] [place] [address], [address], 0 09:19:38 HbA1c (hemoglob in A1c), blood [address] (Lab), [address] [place] [address], [address], 0 09:19:38 hepatitis C Ab, serum [address] (Lab), [address] [place] [address], [address], 9 09:04:05 Referral gynecolog ist referral 2021 022 [place], [address], [address], [place], [address], 2 14:31:[address] referral 2021 022 emeterio Nixon, [address] , [place], [address], 2 14:30:[address] referral 2019 020 [email or web address] [employer], [address] , [place], [address], 0 10:20:30 gynecolog ist referral 2019 020 [email or web address] Hansel Hodgson, [address] [facility], [address], [place], [address], 0 10:20:30 bariatric medicine referral 2019 020 [email or web address], [address] , [address], [place], [address], 0 09:19:48 pulmonolo gist referral 2018 019 [email or web address] Ramya Cavazos MD, [address] [facility], [address], [place], [address], 9 08:59:21 Procedures cerumen removal (PROC) 2021 [facility], [facility], [address] [facility] [address] , [address], [place], [address], 2 10:51:28 Surgeries None recorded. Imaging US, thyroid 2021 [facility] (Imaging), [address], [place], [address], 5 13:44:42 electroca rdiogram 2021 [facility], [facility], [address] [facility] [address], [place], [address], 2 09:01:35 US, thyroid 2021 022 [facility] (Imaging), [address], [place], [address], 2 18:28:58 US, thyroid [address] (Imaging), [address], [place], [address], 0 09:36:24 XR, chest, 2 view [address] (Imaging), [address] [facility] [address] [place] [address], [address], 9 09:16:52 Medication Orders metoprolo l succinate ER 25 mg tablet,ex tended release 24 hr 2021 022 [place] [facility] #78753, [address] [place] [address], [id number], 2 16:40:58 carvedilo l 3.125 mg tablet 2019 020 [facility] #05761, [address], [place], [place], [id number], 2 11:27:34 Saxenda 3 mg/0.5 mL (18 mg/3 mL) subcutane ous pen injector 2018 019 [facility] #99667, [address], [place], [place], [id number], 0 19:25:06 carvedilo l 3.125 mg tablet 2018 019 [id number], [address], [place], [place], [id number], 11:27:34 Patient TargetsNo targets recorded. Patient Instructions Encounter Date Encounter Id Patient Instructions Last Modified By Organization Details Last Modified Time 07/17/2019 [id number] infection from tattoos: care instructions [facility] Not available 07/17/2019 17:10:16 body mass index: care instructions [facility] Not available 07/17/2019 17:02:11 learning about healthy weight [facility] Not available 07/17/2019 17:02:11 pneumonia: care instructions [facility] Not available 07/17/2019 17:10:16 sleep apnea: car e instructions [facility] Not available 07/17/2019 17:02:11 08/18/2020 [id number] thyroid nodules: care instructions [facility] Not available [...] directives such as standard forms to the patient. Face to face discussion lasted for a duration of _3_ minutes. mshenouda Not available 08/18/2020 19:27:51 01/15/2021 [id number] infection from tattoos: care instructions [facility] Not available 01/15/2021 14:56:28 thyroid nodules: care instructions [facility] Not available 01/15/2021 14:56:28 sleep apnea: car e instructions [facility] Not available 01/15/2021 14:56:28 01/15/[id number] neck pain: care instructions [facility] Not available 01/15/2022 11:39:37 thyroid nodules: care instructions [facility] Not available 01/15/2022 11:39:37 infection from tattoos: care instructions [place] Not available 01/15/2022 11:39:36 sleep apnea: car e instructions [facility] Not available 01/15/2022 11:39:36 learning about healthy weight [facility] Not available 01/15/2022 11:39:36 07/05/2022 [id number] thyroid nodules: care instructions [facility] Not available 07/05/2022 16:40:51 infection from tattoos: care instructions [facility] Not available 07/05/2022 16:40:51 Reason for Referral 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 Referral for O bstructive sleep apnea syndrome Referring Physician: Isaac Rush, Internal Medicine, Encounter Date: 07/17/2019 Bariatric Medicine Referral for Body mass index 40+ - severely obese Referring Physician: Isaac Rush Internal Medicine, Encounter Date: 08/18/2020 Radio Engineering Teacher Referral for Mark lt health examination Referring Physician: Isaac Rush Internal Medicine, Encounter Date: 08/18/2020 Child 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 Family Services Worker Referral for Sc reening for malignant neoplasm of cervix Referring Physician: Isaac Rush Internal Medicine, Encounter Date: 08/18/2020 Radio Engineering Teacher Referral for Scr eening procedure Referring Physician: Isaac Rush Internal Medicine, Encounter Date: 01/15/2022 Child And Family Services Worker Referral for Sc reening for malignant neoplasm of cervix Referring Physician: Isaac Rush Internal Medicine, Encounter Date: 01/15/2022 Results Created Date Observation Date Name Description Value Unit Range Abnormal Flag Note LastModifiedBy Organization Detail LastModifiedTime 10/16/20 19 10/16/2019 billy moscoso am No observ ation record ed. [facility] Not Available 2019 19:28:01 10/23/20 19 10/05/2019 sleep study , ASV titra tion* No observ ation record ed. [facility] [address], [place], [address], 08/18/2020 19:28:01 08/20/20 20 03/07/2019 billy moscoso am No observ ation record ed. [facility] [address], [place], [address], 01/15/2021 14:49:04 01/15/2001/15/2022 XR, camilla cisneros, 2 or more view No observ ation record ed. [place] [id number] [facility] [address], [place], [address], 01/15/2022 11:21:54 01/20/20 22 01/18/2022 CT, abdom en + pelvi s, w/ contr ast No observ ation record ed. [place] [id number] [facility] [address], [place], [address], 07/05/2022 16:39:54 07/05/20 22 07/06/2022 elect rocar diogr am No observ ation record ed. [address], [place], [address], 07/06/2022 16:52:04 07/06/20 22 07/05/2022 elect rocar diogr am No observ ation record ed. [address], [place], [address], 07/08/2022 16:54:15 07/06/20 22 07/05/2022 elect rocar diogr am No observ ation record ed. [address], [place], [address], 07/08/2022 16:54:37 07/06/20 22 07/05/2022 elect rocar diogr am No observ ation record ed. [address], [place], [address], 07/08/2022 16:54:24 06/12/20 24 06/11/2024 CT, abdom en + pelvi s, w/ contr ast No observ ation record ed. [address], [place], [address], 06/15/2024 09:31:25 03/07/20 25 03/06/2025 CT, head + brain , w/o contr ast No observ ation record ed. [address], [place], [address], 03/07/2025 15:23:43 03/07/[address], chest + abdom en + pelvi s, w/o contr ast No observ ation record ed. [address], [place], [address], 03/07/2025 15:23:44 03/07/[address], face, w/o contr ast No observ ation record ed. [address], [place], [address], 03/07/2025 15:23:44 03/07/[address], cervi chris spine , w/o contr ast No observ ation record ed. [address], [place], [address], 03/07/2025 15:23:44 Result Notes None recorded. Problems Name Problem SNOMED Code Status Onset Date Resolution Date Notes Provider Name and Address Organization Details Recorded Time [id number] Completed 201608/18/2020 MD Daria Good [address], [place], [address] , [facility] 0 19:23:23 Tattoo of skin 67191958848 2 Active 2016 MD Daria Good [address], [place], [address] , [facility] 7 16:52:50 Obstruct ean sleep apnea syndrome 63132450 Active 2018 Mild MD Daria Good [address], [place], [address] , [facility] 9 17:53:18 Body mass index 40+ - severely obese 799841783 Completed 201801/15/2022 Removal Reason: resolved MD Daria Good [address], [place], [address] , [facility] 2 11:30:08 Sinus tachycar aiden 95774076 Active 2018 MD Daria oGod [address], [place], [address] , [facility] 9 17:09:33 Thyroid nodule 972518953 Active 2019 MD Daria Good [address], [place], [address] , [facility] 0 19:34:29 History of bariatri c surgical procedur e 437918721 Active 2020 MD Lázaro Good[address], [place], [address] , [facility] 1 14:52:30 Vitamin D deficien cy 37066019 Active 2021 MD Lázaro Good[address], [place], [address] , [facility] 2 11:32:00 History of SARS-CoV -2 66864746347 1136029 Active 2021 MD Daria Good [address], [place], [address] , [facility] 2 16:23:42 Gastriti s 8455487 Active 2023 MD Daria Good [address], [place], [address] , [facility] 4 21:13:40 Hyperpro teinemia 10086859 Active 2023 MD Lázaro Good[address] [facility] [address], [place], [address] , [facility] 11:43:30 Problem Notes None recorded. Procedures Surgical History Date Name Laterality Status Provider Name and Address Organization Details Recorded Time 01/06/20 laparoscopic sleeve gastrectomy completed Isaac Rush MD [address] [facility] [address], [place], [address], [facility] 01/15/2021 14:52:48 Imaging Results None recorded. Procedure Notes None recorded. Medical Equipment None [...] MOUTH EVERY 6 HOURS NEEDED FOR PAIN active Not Available Not Available No t Available oxycodone 5 mg/5 mL oral solution [...] MOUTH EVERY 12 HOURS FOR 5 DAYS 03/10 completed Not Available Not Available Not Available acetaminoph en 500 mg tablet 01/09 [...] completed Not Available Not Available Not Available hydrocodone 7.5 mg-acetamin ophen 325 mg tablet TAKE 1 TABLET BY MOUTH EVERY 8 HOURS NEEDED active Not Available Not Available No t Available oseltamivir 75 mg capsule 03/07 completed Not Available Not Available Not Available neomycin-po lymyxin-dex ameth 3.5 mg/mL-10,00 0 unit/mL-0.1 % eye drops 07/17 completed Not Available Not Available Not Available lidocaine 5 % topical patch PLACE 1 PATCH ON SKIN DAILY LEAVE ON MOST PAINFUL AREA FOR UP TO 12 HOURS active Not Available Not Available No t Available omeprazole 20 mg capsule,del ayed release [...] completed Not Available Not Available Not Available cyclobenzap rine 5 mg tablet TAKE 1 TABLET BY MOUTH THREE TIMES A DAY NEEDED FOR MUSCLE SPASM active Not Available Not Available No t Available metoprolol tartrate 25 mg tablet TAKE 1 TABLET BY MOUTH TWICE DAILY 01/15 completed Not Available Not Available Not Available nitrofurant oin monohydrate /macrocryst als 100 mg capsule TAKE 1 CAPSULE BY MOUTH EVERY 12 HOURS FOR 5 DAYS 03/10 completed Not Available Not Available Not Available Mucinex DM 30 mg-600 mg tablet,exte [...] EluRyng 0.12 mg-0.015 mg/24 hr vaginal ring 1 RING INSERTED VAGINALLY X 3WEEKS, THEN 1 WEEK OUT active Not Available Not Available No t Available ID NOW COVID-19 Test Kit TEST DIRECTED TODAY 07/05 completed Not Available Not Available Not Available Vitals Date Recorded Body height Body mass index (BMI) Body weight Respiratory rate Body temperature Heart rate Systolic And Diastolic Provider Name and Address Organization Details Last Updated DateTime 1 154.94 cm 40.8 kg/m2 53757.9 5 g 16 /min 98 [degF] 91 /min 112/75 mm[Hg] KALEB HUNTER [facility] 1 14:20:08 Date Recorded Body height Body mass index (BMI) Body weight Body temperature Heart rate Respiratory rate Systolic And Diastolic Provider Name and Address Organization Details Last Updated DateTime 2 154.94 cm 29.5 kg/m2 70799.4 1 g 97.7 [degF] 112 /min 18 /min 125/88 mm[Hg] Rossy Castillo [facility] 2 11:14:24 Date Recorded Body height Heart rate Respiratory rate Body temperature Body mass index (BMI) Body weight Systolic And Diastolic Provider Name and Address Organization Details Last Updated DateTime 2 154.94 cm 110 /min 18 /min 97.9 [degF] 28.9 kg/m2 69008.6 3 g 123/83 mm[Hg] Rossy Castillo [facility] 2 15:51:33 Date Recorded Heart rate Systolic And Diastolic Provider Name and Address Organization Details Last Updated DateTime 07/17/2019 95 /min 140/85 mm[Hg] Isaac Rush MD [address] [facility] [address], [place], [address] 07/17/2019 17:05:55 Date Recorded Respiratory rate Body temperature Body height Body mass index (BMI) Body weight Provider Name and Address Organization Details Last Updated DateTime 9 18 /min 98.1 [degF] 154.94 cm 40.4 kg/m2 32586.7 7 g Fam Valdezhai [facility] 9 16:51:00 Date Recorded Heart rate Provider Name an d Address Organization Details Last Updated DateTime 08/18/2020 106 /min Isaac Rush MD [address] [facility] [address], [place], [address] 08/18/2020 19:32:50 Date Recorded Respiratory rate Body height Body temperature Body mass index (BMI) Body weight Systolic And Diastolic Provider Name and Address Organization Details Last Updated DateTime 0 18 /min 154.94 cm 97.9 [degF] 43.5 kg/m2 614820. 25 g 141/90 mm[Hg] Alessia Bob [facility] 0 19:09:41 Social History Question Answer Notes LastModified by Vive [employer] ion Details LastModified Time Tobacco Smoking Status Never [facility]oker [facility]2017 16:16:37 Which Illicit Or Recreational Drugs Have You Used? No Information not available 05/19/2017 Live Alone Or With Others? Alone Information not available 05/19/2017 Marital Status [facility] Informatio n not available 05/19/2017 What Was The Date Of Your Most Recent Tobacco Screening? 01/15/2022 Information not available 01/15/2022 Sex: Unknown Functional Status Question Answer Note LastModified by Quanter[employer]at ion Details LastModified Time What is your level of alcohol consumption? Occasional [email or web address] Information not available 05/19/2017 Are you currently employed? Yes Information not available 05/19/2017 Are you able to care for yourself independently? 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 Family [...] Diagnosis SNOMED-CT Code Diagnosis ICD10 Code Diagnosis IMO Codes Diagnosis Note [id number] Isaac Rush MD [facility] [place] [address] [facility] [place] [address] [place] [address] 05/19/2017 15:19:50 05/19/2017 17:03:24 Adult health examination 802094118 Z00.00 Overweight 590295706 E66 .3 Tattoo of skin 536573433 1 02 L81.8 Cholesterol screening 27 5444921 Z13.220 Screening for malignant neoplasm of cervix 402447494 Z12.4 per pt had PAP 03/2017 Active or passive immunization 282422945 Z23 Thyroid nodule 086088734 E04.1 91134 Isaac Rush MD [facility] [place] [address] [place] [address] 05/04/2018 10:01:55 05/04/2018 10:50:33 Adult health examination 506734963 Z00.00 Pharyngitis 004685689 J0 2.9 Tattoo of skin 949285710 1 02 L81.8 Overweight 923432930 E66 .3 Screening for malignant neoplasm of cervix 557571220 Z12.4 per pt had PAP 04/2018 Active or passive immunization 226725397 Z23 Thyroid nodule 432299424 E04.1 643834 LASHAY MCCLELLAN APN [facility] [place] [address] [address] [place] [address] 01/09/2019 11:57:49 01/09/2019 12:37:39 Pneumonia 140536145 J18.9 opacity noted on chest x ray - 01/06/19was rx augmentin on 01/01/19 was seen on 01/06/19 at [facility] - dx with FLu - rx tamiflu - has not continued augmentin - Influenza- like symptoms 183694457 R68.89 currently on tamiflu Tachycardia 1066534 R00. 0 113 -acutely ill -denies heart palpitatio ns, chest pain, or dizziness 309780 LASHAY MCCLELLAN AP[facility], [place] [address] [place] [address] 03/07/2019 15:00:43 03/07/2019 15:37:17 Pneumonia 497248096 J18.9 opacity noted on chest x ray - 01/06/19was rx augmentin on 01/01/19 was seen on 01/06/19 at [facility] - dx with FLu - rx tamiflu - CT chest - normal 01/19/19 Tachycardia 1394588 R00. 0 event monitor completedf ollow up with Cards today - Obstructiv e sleep apnea syndrome 89552855 G47.33 03/14/19 - overnight sleep study scheduled [id number] Isaac Rush MD [employer], [place] [address] [place] [address] 07/17/2019 16:36:01 07/17/2019 17:13:22 Body mass index 40+ - severely obese 908804606 Z68.41 Obstructiv e sleep apnea syndrome 05026952 G47.33 Pneumonia 258991199 J18. 9 Screening for malignant neoplasm of cervix 636379435 Z12.4 per pt had PAP 04/2019 Active or passive immunization 174216860 Z23 Screening procedure 2012 5005 Z13.9 per pt had optometry eval 06/2019 Sinus tachycardia 305781 01 R00.0 Tattoo of skin 586543163 1 02 L81.8 [id number] Isaac Rush MD [employer], [place] [address] [place] [address] 08/18/2020 19:00:11 08/18/2020 19:37:50 Adult health examination 980467081 Z00.01 Sinus tachycardia 175474 01 R00.0 Obstructiv e sleep apnea syndrome 39178504 G47.33 mild on Sleep study 09/2019 Body mass index 40+ - severely obese 554487353 Z68.41 Tattoo of skin 112988906 1 02 L81.8 Screening for malignant neoplasm of cervix 214881612 Z12.4 per pt had PAP 04/2019 Active or passive immunization 271484577 Z23 Thyroid nodule 320843658 E04.1 [id number] Isaac Rush MD [employer], [address] [place] [address] 01/15/2021 14:13:25 01/15/2021 15:04:49 History of bariatric surgical procedure 483810732 Z98.84 gastric sleeve 01/06/21 Obstructiv e sleep apnea syndrome 56186244 G47.33 mild on Sleep study 09/2019 Tattoo of skin 443699611 1 02 L81.8 pls do labs from last visit Thyroid nodule 663021195 E04.1 per pt had US @ [facility] Screening for malignant neoplasm of cervix 690954699 Z12.4 per pt had PAP 04/2019 Active or passive immunization 832658284 Z23 [id number] Isaac Rush MD [facility] [address] [facility] [address] [place] [address] 01/15/2022 11:03:34 01/15/2022 11:49:21 Neck pain 30154326 M54.2 X ray -ve , better with baclofenof f work note 01/11/22 tii 01/15/22 Pain of ri ght shoulder joint 7446787606 9929253 M25.511 -ve X ray , resolved History of bariatric surgical procedure 357212789 Z98.84 gastric sleeve 01/06/21 Body mass index 25-29 - overweight 418371068 Z68.29 educationl ost 60 LBs after gastric sleeve Obstructiv e sleep apnea syndrome 17294727 G47.33 mild on Sleep study 09/2019res olved after weight loss Tattoo of skin 612029083 1 02 L81.8 pls do labs from last visit Thyroid nodule 915321801 E04.1 per pt had US @ [facility] Vitamin D deficiency 347 58313 E55.9 Cholesterol screening 27 2109228 Z13.220 Screening procedure 20126 Z13.9 per pt had optometry eval 06/2019 Screening for malignant neoplasm of cervix 716764361 Z12.4 per pt had PAP 04/2019 Active or passive immunization 081590812 Z23 decline any shots Impacted c erumen in right ear 8347843179 697332 H61.21 [id number] Isaac Rush MD [employer], [facility] [address] [facility] ,[address] [address] 07/05/2022 15:36:04 07/05/2022 17:05:44 Preoperative cardiovascular examination 262065446 Z01.810 low risk for surgery , lipo History of SARS-CoV-2 29 15867392 58263905 Z86.16 tested +ve 11/16/21 and 06/29/22 History of bariatric surgical procedure 781111430 Z98.84 gastric sleeve 01/06/21 Tattoo of skin 357057490 1 02 L81.8 pls do labs from last visit Thyroid nodule 268458208 E04.1 per pt had @ [facility] Vitamin D deficiency 347 17920 E55.9 Sinus tachycardia 814321 01 R00.0 Screening for malignant neoplasm of cervix 042043710 Z12.4 per pt had PAP 2021 Active or passive immunization 109503285 Z23 decline any shots Health Concerns Section Related Observation LastModified by Organization Detai ls LastModified Time None Recorded Concern Status LastModified by Organization Details LastModified Time None Recorded Advance Directives Directive None Recorded Payers Insurance Date Sequence Insurance Name Policy Number Policy Pearl Covered Member ID Pearl Member ID Guarantor Name 05/04/2018 1 [place] [id number] Jessica Dooley [id number] Carolyn Bartholomew 08/18/2020 1 [place] [id number] Carolyn Bartholomew [id number] Carolyn Bartholomew 01/06/2023 1 [id number] Carolyn Bartholomew [id number] Carolyn Bartholomew Notes Date Note Type Note Provider Name and Address Organization Details Recorded Time 07/17/2019 text/html Hypertension F/UReported by PatientHPIFor medications, patient reportstaking medications as directedandno side effects from medication. For lifestyle, patient reportsregular exercise,limiting/ron iding salt, andcompliant with low salt diet. For associated symptoms, patient reportsno dizziness,no lightheadedness,no chest pain,no shortness of breath,no palpitations,no edema,no calf pain with exertion, andno headache. Isaac Rush MD [address], [place], [address], [facility] 07/17/2019 17:11:30 08/18/2020 text/html Medicare Annual Wellness VisitReported by PatientSocial/Behavio ral HistoryFor diet and nutrition, patient reportshealthy diet. For fracture risk, patient reportsno history of fractures,no recent explained fracture,no sudden unexplained fractures, andno previous musculoskeletal injuries. For physical activity, patient reportsrecent increase in physical activity,good physical condition, anddiscussed exercise habits.Mental Status:For depression risk, patient reportsnever feels sad, empty, or tearful,no loss of interest in activities,no significant changes in weight,no sleep disturbances or insomnia,no agitation,no loss of energy,no feelings of worthlessness or guilt,no thoughts of suicide,no history of depression, andno history of mood disorders. For orientation, patient reportsno disorientation to time,no disorientation to date, andno disorientation to place. For concentration and memory, patient reportsno decreased concentrating ability,no memory lapses or loss, anddoes not forget words. For speech/motor difficulties, patient reportsno speech difficulties,no difficulty expressing formulated concepts,no difficulty with fine manipulative tasks,no difficulty writing/copying,no slowed reaction time, anddoes not knock things over when trying to pick them up.Functional AbilityFor hearing, patient reportsno loss of hearing. For vision, patient reportsno vision problems. For falls risk assessment, patient reportsno frequent falls while walking,no fall in the past year, andno dizziness/vertigo. For home safety, patient reportsuse of seatbeltsandno vision or hearing loss while driving. Hypertension F/UReported by PatientHPIFor medications, patient reportstaking medications as directedandno side effects from medication. For lifestyle, patient reportsregular exercise,limiting/ron iding salt, andcompliant with low salt diet. For associated symptoms, patient reportsno dizziness,no lightheadedness,no chest pain,no shortness of breath,no palpitations,no edema,no calf pain with exertion, andno headache. not taking coreg , wants ref for bariatric surg MD Daria Good [address], [place], [address], [facility] 08/18/2020 19:35:22 01/15/2021 text/html Hypertension F/UReported by PatientHPIFor medications, patient reportstaking medications as directedandno side effects from medication. For lifestyle, patient reportsregular exercise,limiting/ron iding salt, andcompliant with low salt diet. For associated symptoms, patient reportsno dizziness,no lightheadedness,no chest pain,no shortness of breath,no palpitations,no edema,no calf pain with exertion, andno headache. she had gastric sleeve on 01/06/21slow recovery MD Daria Good [address], [place], [address], [facility] 01/15/2021 14:56:55 01/15/2022 text/html Hypertension F/UReported by PatientHPIFor medications, patient reportstaking medications as directedandno side effects from medication. For lifestyle, patient reportsregular exercise,limiting/ron iding salt, andcompliant with low salt diet. For associated symptoms, patient reportsno dizziness,no lightheadedness,no chest pain,no shortness of breath,no palpitations,no edema,no calf pain with exertion, andno headache. neck pain and Rt shoulder pain , 4-5 days , no injury , No red flags Isaac Rush MD [address], [place], [address], [facility] 01/15/2022 11:40:21 07/05/2022 text/html Hypertension F/UReported by PatientHPIFor medications, patient reportstaking medications as directedandno side effects from medication. For lifestyle, patient reportsregular exercise,limiting/ron iding salt, andcompliant with low salt diet. For associated symptoms, patient reportsno dizziness,no lightheadedness,no chest pain,no shortness of breath,no palpitations,no edema,no calf pain with exertion, andno headache. Isaac Rush MD [address], [place], [address], [facility] 07/05/2022 16:41:07 OBGyn Episode No OBEpisode recorded.
[2025-10-07 03:59] VITALS: BP 150/98; PULSE 103; RESP 18; TEMP 36.2; O2SAT 99
[2025-10-07 07:19] VITALS: BP 138/92; PULSE 88; RESP 16; O2SAT 100
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
[2025-10-07] MEDS: CYCLOBENZAPRINE HCL 10 MG TABLET PO (07:36)
[2025-10-07] MEDS: ACETAMINOPHEN 325 MG TABLET 650 MG PO (07:36)
[2025-10-07 08:29] LABS: BEDSIDEPREGUCG Negative (Negative)
== END 2025-10-07 10:11 | disposition home or self-care (01) ==
PROVIDERS: Emergency Provider Emergency Medicine
DX: S32.020A Wedge compression fracture of second lumbar vertebra, initial encounter for closed fracture (principal); G47.30 Sleep apnea, unspecified; Z98.84 Bariatric surgery status; V49.40XA Driver injured in collision with unspecified motor vehicles in traffic accident, initial encounter
CPT/HCPCS: 70450; 72125; 72128; 72131; 81025; 99284; A9270